=== PATIENT | female | born 1960 | race African-American/Black ===

== ENCOUNTER 2017-05-12 04:55 | Day surgery (SDC) | payer OTHER ==
[2017-05-05 11:58] VITALS: BMI 29.6
[2017-05-12] MEDS ORDERED: LIDOCAINE 1%/EPI 1:100000 (50 ML MULTI DOSE VIAL) ONE (08:37)
[2017-05-12] MEDS ORDERED: MICROFIBRILLAR COLLAGEN 1 GM EACH ONE (08:37)
[2017-05-12] MEDS ORDERED: MIDAZOLAM HCL 2 MG/2 ML SINGLE DOSE VIAL ONE ×2 (08:58)
[2017-05-12] MEDS ORDERED: PROPOFOL 20 ML ONE ×2 (08:58→09:39)
[2017-05-12] MEDS ORDERED: KETAMINE HCL 200 MG/20 ML VIAL ONE (08:59)
--- NOTE | 2017-05-12 09:06 | HP ---
History & Physical Update - History History: No Change - Physical Physical: No Change - Assessment Assessment: No Change - Plan Plan: No Change (No change from H&P present in paper chart. I have informed the patient that I will be assisting Dr. Xavier with today's surgery.)
[2017-05-12] MEDS ORDERED: CLINDAMYCIN PHOSPHATE 600 MG/4 ML VIAL IVPB ONE (09:40)
[2017-05-12] MEDS ORDERED: CLINDAMYCIN PHOSPHATE 600 MG/4 ML VIAL ONE (09:41)
[2017-05-12] MEDS ORDERED: LIDOCAINE 1%/EPI 1:100000 (20 ML MULTI DOSE VIAL) INF ONE (09:56)
[2017-05-12] MEDS ORDERED: MICROFIBRILLAR COLLAGEN 1 GM EACH TP ONE (10:48)
[2017-05-12] MEDS ORDERED: LACTATED RINGERS SOLUTION 1,000 ML IV SCH (11:15)
[2017-05-12] MEDS ORDERED: ALBUTEROL SO4 6.7 GM HFA INHALER IH ONE (11:18)
[2017-05-12] MEDS ORDERED: ONDANSETRON 4 MG/2 ML VIAL IVPUSH PRN (11:30)
[2017-05-12] MEDS ORDERED: oxyCODONE HCL 5 MG TABLET PO PRN (11:30)
[2017-05-12] MEDS: ALBUTEROL SO4 0.083% IH SOL 2.5 MG/3 ML VIAL.NEB. NEB ONE ×2 (11:30→13:40)
--- NOTE | 2017-05-12 13:33 | OP ---
Operative Note - Note: Operative Date: 05/12/17 Pre-Operative Diagnosis: left thyroid nodule Operation: left hemithyroidectomy Post-Operative Diagnosis: Same as Pre-op Surgeon: Trip Xavier Tableman: Kareen Hughes Anesthesiologist/PRIZE COORDINATOR: Anabella Ceja Anesthesia: General Specimens Removed: left thyroid lobe and isthmus Estimated Blood Loss (mls): 10 Fluid Volume Replaced (mls): 1,200 Operative Report Dictated: Yes
--- NOTE | 2017-05-12 13:40 | SURG ---
Surgery Child Psychology Teacher Note Child Psychology Teacher: Kareen Hughes PA-C Date of Service: 05/12/17 Diagnosis: left thyroid nodule Procedure: left hemithyroidectomy I was present for the entirety of the operative procedure. For further detail, please refer to operative report. Visit type - Case Type Case Type: Scheduled Admission - New patient This patient is new to me today: Yes Date on this admission: 05/12/17
[2017-05-12] MEDS ORDERED: ALBUTEROL SO4 0.083% IH SOL 2.5 MG/3 ML VIAL.NEB. NEB ONE (14:37)
[2017-05-12 15:02] VITALS: TEMP 98.1
[2017-05-12] MEDS ORDERED: oxyCODONE HCL 5 MG TABLET ONE (16:18)
[2017-05-12] MEDS ORDERED: oxyCODONE HCL 5 MG TABLET PO ONE (16:20)
[2017-05-12 16:58] VITALS: BP 160/83; PULSE 88
--- NOTE | 2017-05-15 10:14 | OP ---
DATE OF OPERATION: 05/12/2017 SURGICAL ATTENDING: Farzaneh Perez MD CHOIR MEMBER: SARA Price PREOPERATIVE DIAGNOSIS: Left and isthmus thyroid nodules. POSTOPERATIVE DIAGNOSIS: Left and isthmus thyroid nodules. ANESTHESIA: General endotracheal. PROCEDURE: 1. Left hemithyroidectomy. 2. Neck ultrasound. DESCRIPTION OF PROCEDURE: The patient was taken into the operating room, placed in a supine position, endotracheally intubated. Neck ultrasound was performed showing a left thyroid lobe and isthmus nodules. No evidence of extracapsular extension or lymphadenopathy was seen. The right lobe was completely normal. The patient was then prepped and draped in usual sterile fashion. Local anesthesia was administered, and a 4.5-cm incision was made horizontally in an upper neck skin crease. This was carried down through subcutaneous tissues and platysma. Subplatysmal flaps were raised superiorly and inferiorly, and flap hooks were placed for exposure. The median raphe was incised, and the strap muscles on the left side were elevated off the thyroid gland. The recurrent laryngeal nerve and superior laryngeal nerves were identified and preserved. The superior, posterior, and inferior attachments were transected with care taken to preserve the parathyroid glands. The isthmus was transected with a LigaSure. IN this way, the left thyroid lobe was removed. It was inspected for parathyroid tissue, and none was found. It was then sent to Pathology for permanent evaluation. Hemostasis was achieved with electrocautery and Avitene. The wound was then closed in 3 layers. Sterile dressings were placed. The patient was then awakened, extubated, and taken to recovery in stable condition. Dr. Perez, the attending surgeon, was present throughout the entire procedure. FARZANEH PEREZ M.D. [id number]
--- NOTE | 2017-05-15 12:47 | PATH ---
Surgical Pathology Report Patient Name: RUPERT [place] [facility]. Rec. #: [id number] /Age/Gender: 1960 (Age: 57) / F Account: [id number] Location: [facility] SURGICAL Taken: 05/12/2017 Received: 05/12/2017 Reported: 05/15/2017 Physicians: Trip Xavier M.D. Specimen(s) Received LEFT THYROID LOBE AND ISTHMUS Clinical History Thyroid nodules Final Diagnosis THYROID GLAND, LEFT LOBE AND ISTHMUS, HEMITHYROIDECTOMY: BENIGN THYROID TISSUE WITH MULTINODULAR HYPERPLASIA WITH DOMINANT NODULE WITH FOCAL CYSTIC AND DEGENERATIVE CHANGES (2.6 CM); MILD PATCHY LYMPHOCYTIC THYROIDITIS. NO MALIGNANCY IDENTIFIED. Electronically Signed Greg Schaeffer M.D. Gross Description Received in formalin labeled "left thyroid lobe and isthmus" is a 24 g portion of thyroid lobe and an attached isthmus. The left lobe measures 5.0 x 2.9 x 1.4 cm and the isthmus measures 3.5 x 2.8 x 1.5 cm. The outer capsule is intact. The left lobe is inked black and the isthmus is inked blue. Sectioning reveals a large, 2.6 cm in greatest dimension colloid nodule in the isthmus. There is an additional smaller nodule in the inferior pole of the left lobe. The remaining thyroid parenchyma is red-brown and beefy. Public Health Officer sections are submitted in 11 cassettes as follows: 1-7-left lobe sequentially from superior to inferior; 1-78-pjntzfo sequentially from left to right. /05/12/201705/12/2017
== END 2017-05-12 16:58 | disposition home or self-care (01) ==
LOC: JASU-SURG 04:55
PROVIDERS: ATTEND Surgery
PROC: 0GTG0ZZ Resection of Left Thyroid Gland Lobe, Open Approach (ICD-10-PCS; principal; 2017-05-12 09:00)
DX: E04.1 Nontoxic single thyroid nodule (principal)
CPT/HCPCS: 88307-TC; 94760

== ENCOUNTER 2017-06-24 10:09 | Emergency (ER) | payer OTHER ==
[2017-06-24 10:15] VITALS: BP 164/68; PULSE 103; TEMP 98.4; BMI 29.7
[2017-06-24] MEDS ORDERED: ALBUTEROL SO4 2.5/IPRATROPIUM 0.5 INH SOL 3 ML VIAL.NEB. NEB ONE ×4 (10:21→11:09)
[2017-06-24] MEDS ORDERED: predniSONE 20 MG TABLET (UD) PO ONE (10:31)
--- NOTE | 2017-06-24 10:33 | PDOC ---
History of Present Illness - General Chief Complaint: Asthma Stated Complaint: SOB, COUGH (ASTHMA) Time Seen by Provider: 06/24/17 10:21 History Source: Patient Exam Limitations: No Limitations - History of Present Illness Initial Comments: 06/24/17 10:28 57 yr female with history of asthma states she had thyroid removal May 12 and since then has had cough wheezing. Pt has no history of intubations for asthma, pt has been hospitalized. Pt denies fever . 06/24/17 10:33 Timing/Duration: reports: constant Severity: reports: moderate Past History - Past Medical History Allergies/Adverse Reactions: Allergies Allergy/AdvReac Type Severity Reaction Status Date / Time Penicillins Allergy Hives Verified 06/24/17 10:15 Home Medications: Ambulatory Orders Methimazole 10 mg PO BID 06/16/14 Amlodipine Besylate [Norvasc -] 10 mg PO DAILY 01/19/15 Beclomethasone Dipropionate [Qvar] 8.7 gm IH ASDIR 01/19/15 Gabapentin 300 mg PO BID 01/19/15 Iron,Carbonyl/Vit C/Vit B12/FA [Iron 100 Plus Tablet] 1 each PO DAILY 01/19/15 Lansoprazole [Prevacid -] 30 mg PO DAILY 01/19/15 Cyclobenzaprine HCl [Flexeril -] 10 mg PO Q8H PRN #20 tablet 06/29/15 Guaifenesin Dm [Mucinex Dm -] 1 - 2 tab PO Q12H PRN #20 tab.er.12h 10/25/15 Oxycodone HCl/Acetaminophen [Percocet 5-325 mg Tablet] 1 tab PO Q4H PRN #20 tablet MDD 6 05/12/17 Azithromycin [Zithromax 250mg Tablets -] 250 mg PO UTDICT #6 tab 06/24/17 Prednisone [Deltasone -] 40 mg PO DAILY #8 tablet 06/24/17 Anemia: Yes Asthma: Yes Cancer: No Cardiac Disorders: No CVA: No (?SMALL STROKE ON CT SCAN SHOWED YEARS AGO) COPD: No CHF: No Dementia: No Diabetes: No GI Disorders: Yes (GERD) Disorders: No HTN: Yes Hypercholesterolemia: No Liver Disease: No Seizures: No Thyroid Disease: Yes - Psycho/Social/Smoking Cessation Hx Anxiety: No Suicidal Ideation: No Smoking Status: No Smoking History: Never smoked Have you smoked in the past 12 months: No Number of Cigarettes Smoked Daily: 0 Hx Alcohol Use: Yes (SOCIAL) Drug/Substance Use Hx: No Substance Use Type: None *Physical Exam - Vital Signs Last Vital Signs Temp Pulse Resp BP Pulse Ox 98.4 F 103 H 20 164/68 95 06/24/17 10:11 06/24/17 10:11 06/24/17 10:11 06/24/17 10:11 06/24/17 10:11 - Physical Exam General Appearance: Yes: Nourished, Appropriately Dressed HEENT: positive: EOMI, ZELDA, Normal ENT Inspection, TMs Normal, Pharynx Normal Neck: positive: Supple Respiratory/Chest: positive: Rhonchi, Wheezing. negative: Stridor Cardiovascular: positive: Regular Rhythm, Regular Rate Gastrointestinal/Abdominal: positive: Normal Bowel Sounds, Soft Musculoskeletal: positive: Normal Inspection Extremity: positive: Normal Capillary Refill, Normal Inspection, Normal Range of Motion Integumentary: positive: Normal Color, Dry, Warm Neurologic: positive: Fully Oriented, Alert, Normal Mood/Affect, Normal Response , Motor Strength 5/5 ED Treatment Course - Medications Given in the ED: ED Medications Discontinued Medications Generic Name Dose Route Start Last Admin Trade Name Freq PRN Reason Stop Dose Admin Albuterol/Ipratropium 1 amp 06/24/17 10:21 06/24/17 10:26 Duoneb - NEB 06/24/17 10:22 1 amp ONCE ONE Administration Medical Decision Making - Medical Decision Making 06/24/17 11:09 cc: cough wheezing , chest feels tight, using neb at home without relief. speaking full sentences no history of intubations pt had partial thyroid gland removal on May 12, 2017 states ever since then she has had a cough and "tickle in throat" no fever 06/24/17 11:10 will give duonebs x3 prednisone po, chest xray to r/o infiltrate *DC/Admit/Observation/Transfer Diagnosis at time of Disposition: Bronchitis after surgery - Discharge Dispostion Disposition: HOME Condition at time of disposition: Good - Prescriptions Prescriptions: Prednisone [Deltasone -] 40 mg PO DAILY #8 tablet Azithromycin [Zithromax 250mg Tablets -] 250 mg PO UTDICT #6 tab - Patient Instructions Printed Discharge Instructions: DI for Bronchiolitis Additional Instructions: take next dose of prednisone tomorrow use inhaler as directed every 4hrs take the Zpack antibiotic as directed for 5 days drink pleanty of water to stay well hydrated. follow with your doctor on Monday or Monday for follow up
[2017-06-24] MEDS ORDERED: predniSONE 20 MG TABLET (UD) ONE (10:34)
== END 2017-06-24 11:44 | disposition home or self-care (01) ==
LOC: JERFT 10:09
PROC: 3E0F7GC Introduction of Other Therapeutic Substance into Respiratory Tract, Via Natural or Artificial Opening (ICD-10-PCS; principal; 2017-06-24)
PROC: 3E0F7GC Introduction of Other Therapeutic Substance into Respiratory Tract, Via Natural or Artificial Opening (ICD-10-PCS; 2017-06-24)
PROC: 3E0F7GC Introduction of Other Therapeutic Substance into Respiratory Tract, Via Natural or Artificial Opening (ICD-10-PCS; 2017-06-24)
DX: J40 Bronchitis, not specified as acute or chronic (principal); Z98.890 Other specified postprocedural states; J45.909 Unspecified asthma, uncomplicated; I10 Essential (primary) hypertension; K21.9 Gastro-esophageal reflux disease without esophagitis; Z86.73 Personal history of transient ischemic attack (TIA), and cerebral infarction without residual deficits
CPT/HCPCS: 71020-TC; 94640; 99281-25

== ENCOUNTER 2018-01-12 14:10 | Emergency (ER) | payer OTHER ==
[2018-01-12 14:18] VITALS: BP 150/95; PULSE 77; TEMP 97.5; BMI 29.8
[2018-01-12] MEDS ORDERED: ALBUTEROL SO4 2.5/IPRATROPIUM 0.5 INH SOL 3 ML VIAL.NEB. NEB ONE ×2 (15:19→15:41)
[2018-01-12] MEDS ORDERED: predniSONE 20 MG TABLET (UD) PO ONE (15:19)
--- NOTE | 2018-01-12 15:26 | PDOC ---
History of Present Illness - General Chief Complaint: Respiratory Stated Complaint: Sore Throat/COUGH Time Seen by Provider: 01/12/18 14:31 History Source: Patient Exam Limitations: No Limitations - History of Present Illness Initial Comments: 01/12/18 15:55 Pt. is a 57 y/o F who presents to the ED c/o cough, sore throat and shortness of breath for one week. She states that the cough is dry and she finds it difficult to catch her breath. She feels like she is wheezing and states that her chest feels tight. Denies fever, chills, ear ache, n/v/d ,chest pain. Past History - Past Medical History Allergies/Adverse Reactions: Allergies Allergy/AdvReac Type Severity Reaction Status Date / Time Penicillins Allergy Hives Verified 01/12/18 14:17 Home Medications: Ambulatory Orders Iron,Carb/Vit C/Vit B12/Folic [Iron 100 Plus Tablet] 1 each PO DAILY 01/19/15 Albuterol 0.083% Nebulizer Geovanna [Ventolin 0.083% Nebulizer Soln -] 1 neb NEB Q4H #20 vial 01/12/18 Albuterol Sulfate Inhaler - [Ventolin Hfa Inhaler -] 1 - 2 inh PO QID 01/12/18 Azithromycin [Zithromax 250mg Tablets -] 250 mg PO UTDICT #6 tab 01/12/18 Cholecalciferol (Vitamin D3) [Vitamin D3 -] 400 unit PO DAILY 01/12/18 Levothyroxine [Synthroid -] 88 mcg PO DAILY 01/12/18 Lisinopril [Prinivil] 5 mg PO DAILY 01/12/18 predniSONE [Deltasone -] 40 mg PO DAILY #8 tablet 01/12/18 Anemia: Yes Asthma: Yes Cancer: No Cardiac Disorders: No CVA: No (?SMALL STROKE ON CT SCAN SHOWED YEARS AGO) COPD: No CHF: No Dementia: No Diabetes: No GI Disorders: Yes (GERD) Disorders: No HTN: Yes Hypercholesterolemia: No Liver Disease: No Seizures: No Thyroid Disease: Yes Other medical history: baseline sat 94% - Suicide/Smoking/Psychosocial Hx Smoking Status: No Smoking History: Former smoker Have you smoked in the past 12 months: No Number of Cigarettes Smoked Daily: 0 If you are a former smoker, when did you quit?: 4 years Information on smoking cessation initiated: No Hx Alcohol Use: Yes (SOCIAL) Drug/Substance Use Hx: No Substance Use Type: None Review of Systems - Review of Systems Able to Perform ROS?: Yes Is the patient limited Slovenian proficient: No Constitutional: No: Chills, Fever, Weakness HEENTM: Yes: Throat Pain. No: Ear Pain, Nose Pain, Nose Congestion, Throat Swelling, Difficulty Swallowing Respiratory: Yes: Cough, Shortness of Breath. No: Wheezing Cardiac (ROS): Yes: Chest Tightness. No: Chest Pain, Lightheadedness ABD/GI: No: Diarrhea, Nausea, Vomiting Integumentary: No: Erythema, Pruritus, Rash Neurological: No: Headache, Numbness, Weakness All Other Systems: Reviewed and Negative *Physical Exam - Vital Signs Last Vital Signs Temp Pulse Resp BP Pulse Ox 97.5 F L 77 16 150/95 94 L 01/12/18 14:14 01/12/18 14:14 01/12/18 14:14 01/12/18 14:14 01/12/18 14:14 - Physical Exam General Appearance: Yes: Nourished, Appropriately Dressed. No: Apparent Distress (Pt. is AAOx3, sitting on exam bed breathing easily. ) HEENT: positive: EOMI, ZELDA, TMs Normal, Rhinorrhea. negative: Normal Voice, Pharynx Normal, Tonsillar Exudate, Tonsillar Erythema Neck: positive: Trachea midline, Supple. negative: Tender, Rigid, Lymphadenopathy (R), Lymphadenopathy (L) Respiratory/Chest: positive: Normal Breath Sounds, Respiratory Distress, Accessory Muscle Use, Decreased Breath Sounds (to the bases). negative: Rales, Rhonchi, Wheezing Cardiovascular: positive: Regular Rhythm, Regular Rate, S1, S2 (present). negative: Murmur Integumentary: positive: Normal Color, Dry, Warm. negative: Rash Neurologic: positive: Fully Oriented, Alert, Normal Mood/Affect, Normal Response , Motor Strength 5/5 Medical Decision Making - Medical Decision Making 01/12/18 16:03 Pt. is a 57 y/o F who presents to the ED with cough and sore throat for one week. On exam pt lungs CTAB, with decrease aeration to the bases. Duonebs given with relief of symptoms. Pt reports she feels much better at this time. Repeat O2 sat taken 97% on RA. Will treat for bronchitis at this time. Pt to f/u with PCP. Will dc home at this time. Pt understands all dc instructions and all questions were answered *DC/Admit/Observation/Transfer Diagnosis at time of Disposition: Bronchitis - Discharge Dispostion Disposition: HOME Condition at time of disposition: Stable Decision to Admit order: No - Prescriptions Prescriptions: Albuterol 0.083% Nebulizer Geovanna [Ventolin 0.083% Nebulizer Soln -] 1 neb NEB Q4H #20 vial Azithromycin [Zithromax 250mg Tablets -] 250 mg PO UTDICT #6 tab predniSONE [Deltasone -] 40 mg PO DAILY #8 tablet - Referrals Referrals: Alfonzo Ornelas [Primary Care Provider] - - Patient Instructions Printed Discharge Instructions: DI for Acute Bronchitis Additional Instructions: You have bronchitis. Please take the steroids, and antibiotics as prescribed. Drink plenty of fluids. Follow up with your primary care doctor this week. Your strep test was negative today. Drink warm drinks and use halls for your sore throat. Return to the ED if you have worsening shortness of breath, difficulty breathing or have any changes in your symptoms. - Post Discharge Activity
[2018-01-12] MEDS ORDERED: predniSONE 20 MG TABLET (UD) ONE (15:41)
== END 2018-01-12 16:32 | disposition home or self-care (01) ==
LOC: JERFT 14:10
PROC: 3E0F7GC Introduction of Other Therapeutic Substance into Respiratory Tract, Via Natural or Artificial Opening (ICD-10-PCS; principal; 2018-01-12)
DX: J40 Bronchitis, not specified as acute or chronic (principal); Z87.891 Personal history of nicotine dependence; I10 Essential (primary) hypertension; K21.9 Gastro-esophageal reflux disease without esophagitis
CPT/HCPCS: 87070; 87430; 94640; 99281-25; J7620

== ENCOUNTER 2018-07-29 06:29 | Observation (INO) | payer OTHER ==
--- NOTE | 2018-07-29 07:33 | PDOC ---
History of Present Illness - General Chief Complaint: Pain Stated Complaint: ABD PAIN Time Seen by Provider: 07/29/18 07:15 History Source: Patient Exam Limitations: No Limitations - History of Present Illness Travel History: No Initial Comments: 07/29/18 07:24 58y F hx of asthma, gerd, presents with lower abd pain since last night. Pt notes that she had slight pain during the day, but around 5pm, she noticed it worsened. The pain seems to wax and wane initially, but now is persistent, pain is worse in the lower abdomen and radiates to the RLQ. Pt endorses some dysuria and nausea. She denies any fever/chills, bcak pain, chest pain, n/v, vag dc, vag bleeding, diarrhea, melena, bpr, constipation (last BM yesterday). No prior abd surgery. PMD: Dr. Bojorquez Past History - Past Medical History Allergies/Adverse Reactions: Allergies Allergy/AdvReac Type Severity Reaction Status Date / Time Penicillins Allergy Hives Verified 01/12/18 14:17 Home Medications: Ambulatory Orders Iron,Carb/Vit C/Vit B12/Folic [Iron 100 Plus Tablet] 1 each PO DAILY 01/19/15 Albuterol 0.083% Nebulizer Geovanna [Ventolin 0.083% Nebulizer Soln -] 1 neb NEB Q4H #20 vial 01/12/18 Albuterol Sulfate Inhaler - [Ventolin Hfa Inhaler -] 1 - 2 inh PO QID 01/12/18 Azithromycin [Zithromax 250mg Tablets -] 250 mg PO UTDICT #6 tab 01/12/18 Cholecalciferol (Vitamin D3) [Vitamin D3 -] 400 unit PO DAILY 01/12/18 Levothyroxine [Synthroid -] 88 mcg PO DAILY 01/12/18 predniSONE [Deltasone -] 40 mg PO DAILY #8 tablet 01/12/18 Montelukast Sodium [Singulair] 10 mg PO DAILY 07/29/18 Nebivolol HCl [Bystolic] 10 mg PO DAILY 07/29/18 Prevacid - MDD UNKNOWN DOSE 07/29/18 Anemia: Yes Asthma: Yes Cancer: No Cardiac Disorders: No CVA: No (?SMALL STROKE ON CT SCAN SHOWED YEARS AGO) COPD: No CHF: No Dementia: No Diabetes: No GI Disorders: Yes (GERD) Disorders: No HTN: Yes Hypercholesterolemia: No Liver Disease: No Seizures: No Thyroid Disease: Yes - Suicide/Smoking/Psychosocial Hx Smoking Status: No Smoking History: Never smoked Have you smoked in the past 12 months: No Number of Cigarettes Smoked Daily: 0 If you are a former smoker, when did you quit?: 4 years Information on smoking cessation initiated: No Hx Alcohol Use: No Drug/Substance Use Hx: No Substance Use Type: None Review of Systems - Review of Systems Able to Perform ROS?: Yes Comments:: 07/29/18 07:43 Constitutional - no reported Fever, Chills, HEENT: no reported vision changes, sore throat Respiratory: no reported cough, sob, hemoptysis Cardiac: no reported chest pain, palpitations, light headedness, leg swelling Abd/GI: +abd pain, nausea no reported vomiting, blood per rectum, melena, diarrhea : + dysuria, no reported frequency, discharge Musculskelatal - no reported back pain, joint swelling skin - no reported bruising, erythema, rash neurological: no reported headache, numbness, focal weakness, tingling, ataxia, hematologic: no reported easy bruising, easy bleeding *Physical Exam - Vital Signs Last Vital Signs Temp Pulse Resp BP Pulse Ox 98.3 F 73 19 136/85 96 07/29/18 06:46 07/29/18 06:46 07/29/18 06:46 07/29/18 06:46 07/29/18 06:46 - Physical Exam Comments: 07/29/18 07:44 GENERAL: The patient is awake, alert, and fully oriented, Nontoxic - in no acute distress. HEAD: Normocephalic, atraumatic. EYES: extraocular movements intact, sclera anicteric, conjunctiva clear. ENT: Normal voice, Moist mucous membranes. NECK: Normal range of motion, supple LUNGS: Breath sounds equal, clear to auscultation bilaterally. No wheezes, no rhonchi, no rales. HEART: Regular rate and rhythm, normal S1 and S2 without murmur, rub or gallop. ABDOMEN: mild lower abd tenderness R>L, Soft, No guarding, no rebound. No CVA tenderness EXTREMITIES: Normal range of motion, no edema. No clubbing or cyanosis. No cords, erythema, or tenderness. NEUROLOGICAL: No facial assymetry, Normal speech, moving all 4 extremities spontaneously and symmetrically PSYCH: Normal mood, normal affect. SKIN: Warm, Dry, normal turgor, Heart Score/ECG Review - ECG Impressions Comment:: 07/29/18 09:33 Twelve-lead EKG was performed and reviewed by me. There is normal sinus rhythm with a normal rate. Rate of 69 The axis is normal. The intervals are normal. There is normal R wave progression Nonspecific T wave abnormality ED Treatment Course - LABORATORY CBC & Chemistry Diagram: 07/29/18 15:50 07/29/18 15:50 Medical Decision Making - Medical Decision Making 07/29/18 07:45 ddx - uti, kidney stone, appendicitis will start with UA, if neg will obtain blood work 07/29/18 11:45 The patient's UA was negative so we obtain blood work on reassessment the patient did have some suprapubic and right lower quadrant tenderness. We'll obtain a CT to rule out appendicitis the patient's CT shows enlarged appendix possible early appendicitis as the patient does have tenderness over there would consult surgery. 07/29/18 12:34 aly cassidy will see ept 07/29/18 13:[address] cassidy, requests Peripheral Edp Equipment Operator consult for possiblity of the essure device maybe causing her pain. will dw dr. telles for observation for furthyer monitoring of her abdominal pain 07/29/18 14:05 case aly telles agre with observation request dr. abernathy for sonsultation. will notify dr. abernathy. stable fo rmed surg Case discussed in detail with admitting physician including history, physical exam and ancillary studies. Admitting physician has assumed care for the patient, will follow all pending diagnostics and will complete the evaluation and treatment. 07/29/18 17:08 case aly Victoria, will see pt, consult placed in computer 07/29/18 17:09 *DC/Admit/Observation/Transfer Diagnosis at time of Disposition: Abnormal CT of the abdomen Abdominal pain Qualifiers: Abdominal location: right lower quadrant Qualified Code(s): R10.31 - Right lower quadrant pain - Discharge Dispostion Condition at time of disposition: Guarded Decision to Admit order: Yes - Referrals - Patient Instructions - Post Discharge Activity
[2018-07-29 07:49] LABS: URINE APPEARANCE CLEAR; URINE BILIRUBIN NEGATIVE (<2.0 mg/dL); URINE COLOR YELLOW; URINE GLUCOSE (UA) NEGATIVE (NEGATIVE); URINE KETONE NEGATIVE (NEGATIVE); URINE LEUK ESTERASE NEGATIVE (NEGATIVE); URINE NITRITE NEGATIVE (NEGATIVE); URINE PROTEIN NEGATIVE (NEGATIVE); URINE UROBILINOGEN NEGATIVE mg/dL (0.2-1.0)
[2018-07-29 07:51] LABS: HCG,QUALITATIVE URINE Negative
[2018-07-29] MEDS ORDERED: SODIUM CHLORIDE 1,000 ML IV ONE ×3 (08:17→12:08)
[2018-07-29] MEDS ORDERED: morphine CARPU-JECT 2 MG/1 ML DISP.SYRIN IVPUSH ONE ×2 (08:17→11:48)
[2018-07-29] MEDS ORDERED: ONDANSETRON 4 MG/2 ML VIAL IVPB ONE (08:17)
[2018-07-29] MEDS ORDERED: ONDANSETRON 4 MG/2 ML VIAL ONE (08:25)
[2018-07-29] MEDS ORDERED: morphine SULFATE 4 MG/ML VIAL ONE ×2 (08:25→11:56)
[2018-07-29 08:37] LABS: BASO % 0.3 % (0-2.0); EOS % 0.8 % (0-4.5); HEMATOCRIT 41.7 % (32.4-45.2); HEMOGLOBIN 13.9 GM/dL (10.7-15.3); MCH 29.7 pg (25.7-33.7); MCHC 33.4 g/dl (32.0-36.0); MEAN CELL VOLUME 89.1 fl (80-96); MEAN PLT VOLUME 10.6 fl (7.5-11.1); MONO % 8.3 % (3.8-10.2); NEUT % 44.6 % (42.8-82.8); PLATELET COUNT 197 K/MM3 (134-434); RBC 4.68 M/mm3 (3.60-5.2); WHITE BLOOD COUNT 6.3 K/mm3 (4.0-10.0)
[2018-07-29 09:13] LABS: ALBUMIN 3.3 g/dl (3.4-5.0); ALK PHOS 60 U/L (45-117); ANION GAP 7 MMOL/L (8-16); BILIRUBIN,TOTAL 0.4 mg/dL (0.2-1); BLOOD UREA NITROGEN 7 mg/dL (7-18); CALCIUM 9.4 mg/dL (8.5-10.1); CHLORIDE 103 mmol/L (98-107); CO2 30 mmol/L (21-32); CREATININE 0.7 mg/dL (0.55-1.3); GLUCOSE,RANDOM 80 mg/dL (74-106); LIPASE 73 U/L (73-393); POTASSIUM 3.6 mmol/L (3.5-5.1); SGOT/AST 16 U/L (15-37); SGPT/ALT 20 U/L (13-61); SODIUM 140 mmol/L (136-145); TOT PROT 7.5 g/dl (6.4-8.2)
[2018-07-29 12:55] LABS: INR 1.21 (0.83-1.09); PROTHROMBIN TIME (PATIENT) 14.3 SEC (9.7-13.0)
--- NOTE | 2018-07-29 13:38 | CONSULT ---
Consult Consult Specialty:: General Surgery Referred by:: Dr. Baires Reason for Consultation:: lower abdominal pain, borderline enlarged appendix on CT - History of Present Illness Chief Complaint: lower abdominal pain, nausea, anorexia, dysuria History of Present Illness: 58yoF with HTN, asthma, GERD, hypothyroidism, h/o Essure placement 3yrs ago, s/ p shoulder surgery and left hemithyroidectomy, presented with bilateral lower abdominal pain associated with heaviness/pressure (like menstrual cramps used to be) with urination, nausea but no vomiting and anorexia beginning yesterday morning with persistence throughout the day. She discussed with her EMT daughter , and came to ER this morning with worsening pain, mostly suprapubic and lower quadrants, with right a bit more than left. Denies hematuria, diarrhea, constipation though stools tend to be hard with iron supplements, last BM yesterday, which did not change the pain. She only had a few bites for breakfast and lunch yesterday, but is hungry now. She stopped getting menses 2 yrs ago. In ER, she is afebrile, with normal labs including WBC, GI labs, and UA. CT was done, showing only a borderline enlarged appendix at 8mm, without clear inflammatory changes, possibly consistent with early appendicitis, and surgery was asked to evaluate. She had pain medication initially, but has had no antibiotics. She is NPO with IV fluid running. - History Source History Provided By: Patient Limitations to Obtaining History: No Limitations - Past Medical History Cardio/Vascular: Yes: HTN Pulmonary: Yes: Asthma, Bronchitis Gastrointestinal: Yes: GERD Reproductive: Yes: Postmenopausal, Other (s/p Essure 3 yrs ago) ...LMP Comment: 2 years ago ...: No Heme/Onc: Yes: Anemia Endocrine: Yes: Hypothyroidism - Past Surgical History Additional Surgical History: Essure device (transvaginally) 3 yrs ago; right shoulder arthroscopy x 2 (rotator cuff and then scar tissue removal); left hemithyroidectomy with possible partial neck dissection ("it was stuck to something") - Alcohol/Substance Use Hx Alcohol Use: No (quit social+ use 05/12/17) History of Substance Use: reports: Cocaine (in teens only), Marijuana (1-2x weekly, last use Monday) - Smoking History Smoking history: Former smoker Have you smoked in the past 12 months: No If you are a former smoker, when did you quit?: 5 years ago - Social History ADL: Independent Home Medications - Allergies Allergies/Adverse Reactions: Allergies Allergy/AdvReac Type Severity Reaction Status Date / Time Penicillins Allergy Hives Verified 01/12/18 14:17 - Home Medications Home Medications: Ambulatory Orders Iron,Carb/Vit C/Vit B12/Folic [Iron 100 Plus Tablet] 1 each PO DAILY 01/19/15 Albuterol 0.083% Nebulizer Geovanna [Ventolin 0.083% Nebulizer Soln -] 1 neb NEB Q4H #20 vial 01/12/18 Albuterol Sulfate Inhaler - [Ventolin Hfa Inhaler -] 1 - 2 inh PO QID 01/12/18 Azithromycin [Zithromax 250mg Tablets -] 250 mg PO UTDICT #6 tab 01/12/18 Cholecalciferol (Vitamin D3) [Vitamin D3 -] 400 unit PO DAILY 01/12/18 Levothyroxine [Synthroid -] 88 mcg PO DAILY 01/12/18 Lisinopril [Prinivil] 5 mg PO DAILY 01/12/18 predniSONE [Deltasone -] 40 mg PO DAILY #8 tablet 01/12/18 Home Medications (free text): per patient, had Z-aliyah and 5-day steroid taper from last Monday to last Monday for URI; also stated BP med is Bystolic, does not think it's lisinopril; uses Flovent 2 puffs usually daily, occasionally twice daily; uses albuterol nebulizer couple times a week as needed Family Disease History - Family Disease History Family History: Unremarkable (noncontributory) Review of Systems - Review of Systems Constitutional: reports: Chills, Fever ("hot and cold flashes" - more frequent last couple days than usual), Loss of Appetite (yesterday) Eyes: reports: Other (wears glasses). denies: Recent Change in Vision HENT: reports: Nasal Congestion (last week more than usual, tends to have some chronically), Throat Pain (last week, improved since meds) Neck: denies: Pain on Movement, Stiffness Cardiovascular: denies: Chest Pain, Palpitations Respiratory: reports: Cough. denies: SOB Gastrointestinal: reports: Abdominal Pain (with hpi), Nausea (with hpi). denies : Constipation (hard stools but pretty regular), Diarrhea, Melena, Rectal Bleeding, Vomiting Genitourinary: reports: Dysuria ("heaviness" and "pressure" with urination - last couple days). denies: Burning, Hematuria, Vaginal Bleeding Musculoskeletal: denies: Back Pain, Joint Pain, Muscle Pain Integumentary: denies: Change in Color, Rash Neurological: denies: Dizziness, Headache Physical Exam Vital Signs: Vital Signs Temperature 98.4 F 07/29/18 12:21 Pulse Rate 79 07/29/18 12:21 Respiratory Rate 18 07/29/18 12:21 Blood Pressure 139/82 07/29/18 12:21 O2 Sat by Pulse Oximetry (%) 100 07/29/18 12:21 Constitutional: Yes: Well Nourished, No Distress, Calm Eyes: Yes: Conjunctiva Clear, EOM Intact HENT: Yes: Atraumatic, Normocephalic Neck: Yes: Supple, Trachea Midline, Other (healed thyroid scar) Cardiovascular: Yes: Regular Rate and Rhythm. No: Murmur Respiratory: Yes: Regular, CTA Bilaterally. No: Wheezes Gastrointestinal: Yes: Normal Bowel Sounds, Soft, Hernia (tiny palpable umbilical defect), Tenderness (bilateral lower quadrants and suprapubic area, right little more than left, but both sides tender without referred tenderness; no brittney/guard). No: Tenderness, Rebound ...Rectal Exam: Yes: Deferred Renal/: No: CVA Tenderness - Left, CVA Tenderness - Right Musculoskeletal: No: Joint Stiffness, Joint Swelling Extremities: No: Cool, Cyanosis Edema: No Peripheral Pulses WNL: Yes Integumentary: Yes: Body Piercing (nasal). No: Jaundice, Rash Neurological: Yes: Alert, Oriented Psychiatric: Yes: Alert, Oriented Labs: CBC, BMP 07/29/18 08:20 07/29/18 08:20 CMP Sodium 140 mmol/L (136-145) 07/29/18 08:20 Potassium 3.6 mmol/L (3.5-5.1) 07/29/18 08:20 Chloride 103 mmol/L (98-107) 07/29/18 08:20 Carbon Dioxide 30 mmol/L (21-32) 07/29/18 08:20 Anion Gap 7 MMOL/L (8-16) L 07/29/18 08:20 BUN 7 mg/dL (7-18) 07/29/18 08:20 Creatinine 0.7 mg/dL (0.55-1.3) 07/29/18 08:20 Creat Clearance w eGFR > 60 (>60) 07/29/18 08:20 Random Glucose 80 mg/dL (74-106) 07/29/18 08:20 Calcium 9.4 mg/dL (8.5-10.1) 07/29/18 08:20 Total Bilirubin 0.4 mg/dL (0.2-1) 07/29/18 08:20 AST 16 U/L (15-37) 07/29/18 08:20 ALT 20 U/L (13-61) 07/29/18 08:20 Alkaline Phosphatase 60 U/L (45-117) 07/29/18 08:20 Total Protein 7.5 g/dl (6.4-8.2) 07/29/18 08:20 Albumin 3.3 g/dl (3.4-5.0) L 07/29/18 08:20 Lipase 73 U/L (73-393) 07/29/18 08:20 INR, PTT INR 1.21 (0.83-1.09) H 07/29/18 12:20 Urine Test Results Urine Color Yellow 07/29/18 07:40 Urine Appearance Clear 07/29/18 07:40 Urine pH 6.0 (5.0-8.0) 07/29/18 07:40 Ur Specific [place] 1.020 (1.001-1.035) 07/29/18 07:40 Urine Protein Negative (NEGATIVE) 07/29/18 07:40 Urine Glucose (UA) Negative (NEGATIVE) 07/29/18 07:40 Urine Ketones Negative (NEGATIVE) 07/29/18 07:40 Urine Blood Negative (NEGATIVE) 07/29/18 07:40 Urine Nitrite Negative (NEGATIVE) 07/29/18 07:40 Urine Bilirubin Negative (<2.0 mg/dL) 07/29/18 07:40 Ur Leukocyte Esterase Negative (NEGATIVE) 07/29/18 07:40 labs essentially normal - UA normal Imaging - Results Cat Scan: Report Reviewed, Image Reviewed (images personally reviewed: Essure noted in pelvic region bilaterally; no obstruction, free air or fluid; appendix borderline large 8mm but no clear inflammatory changes; no diverticulitis) Problem List - Problems (1) Bilateral lower abdominal pain Code(s): R10.31 - RIGHT LOWER QUADRANT PAIN; R10.32 - LEFT LOWER QUADRANT PAIN (2) Abdominal tenderness, left lower quadrant Code(s): R10.814 - LEFT LOWER QUADRANT ABDOMINAL TENDERNESS (3) Abdominal tenderness, right lower quadrant Code(s): R10.813 - RIGHT LOWER QUADRANT ABDOMINAL TENDERNESS (4) Suprapubic abdominal pain Code(s): R10.2 - PELVIC AND PERINEAL PAIN (5) Nausea alone Code(s): R11.0 - NAUSEA (6) Hypothyroidism Code(s): E03.9 - HYPOTHYROIDISM, UNSPECIFIED (7) Hypertension Code(s): I10 - ESSENTIAL (PRIMARY) HYPERTENSION (8) GERD without esophagitis Code(s): K21.9 - GASTRO-ESOPHAGEAL REFLUX DISEASE WITHOUT ESOPHAGITIS (9) Asthma Code(s): J45.909 - UNSPECIFIED ASTHMA, UNCOMPLICATED (10) Anemia, iron deficiency Code(s): D50.9 - IRON DEFICIENCY ANEMIA, UNSPECIFIED Assessment/Plan Patient with bilateral lower quadrant tenderness and suprapubic, though right little more than left, along with >24 history of symptoms, makes diagnosis of possible appendicitis questionable. She did have antibiotics and steroids just last week - unclear how that may impact current process. Presence of Essure device with her symptoms could mean that her pain and tenderness are related to that, though would defer to NIGHT WAREHOUSE MANAGER evaluation thereof. She has not yet had a pelvic exam. Would have NIGHT WAREHOUSE MANAGER evaluate Observe on medical service for repeat labs later tonight or in am Serial exams - no pain medication, no antibiotics - to follow natural course of process NPO/IV fluids Will follow along Discussed with patient risks, benefits and alternatives of diagnostic laparoscopy with laparoscopic possible open appendectomy, including but not limited to bleeding, infection, injury to adjacent structures, intestinal leak or injury, intraabdominal abscess, incisional hernia, need for further procedures; alternatives may include antibiotics, delayed or no surgery - risks of this include failure of nonoperative therapy, perforation, sepsis, recurrence. Also discussed that even if appendix were removed, if it is not the cause of her symptoms, she will require further workup and treatment to identify the source and address it. She understands and would be agreeable to surgery if it becomes indicated. Thank you for the opportunity to participate in the care of this patient.
--- NOTE | 2018-07-29 14:08 | HP ---
Admitting History and Physical - Admission History of Present Illness: 58y F hx of asthma, gerd, presents with lower abd pain since last night. Pt notes that she had slight pain during the day, but around 5pm, she noticed it worsened. The pain seems to wax and wane initially, but now is persistent, pain is worse in the lower abdomen and radiates to the RLQ. Pt endorses some dysuria and nausea. She denies any fever/chills, bcak pain, chest pain, n/v, vag dc, vag bleeding, diarrhea, melena, bpr, constipation (last BM yesterday). No prior abd surgery. - Past Medical History Cardiovascular: Yes: HTN Pulmonary: Yes: Asthma, Bronchitis Gastrointestinal: Yes: GERD ...LMP Comment: 2 years ago ...: No Heme/Onc: Yes: Anemia Endocrine: Yes: Hypothyroidism - Smoking History Smoking history: Never smoked Have you smoked in the past 12 months: No Aproximately how many cigarettes per day: 0 If you are a former smoker, when did you quit?: 4 years - Alcohol/Substance Use Hx Alcohol Use: No History of Substance Use: reports: Cocaine (in teens only), Marijuana (1-2x weekly, last use Monday) - Social History ADL: Independent Home Medications - Allergies Allergies/Adverse Reactions: Allergies Allergy/AdvReac Type Severity Reaction Status Date / Time Penicillins Allergy Hives Verified 01/12/18 14:17 - Home Medications Home Medications: Ambulatory Orders Iron,Carb/Vit C/Vit B12/Folic [Iron 100 Plus Tablet] 1 each PO DAILY 01/19/15 Albuterol 0.083% Nebulizer Geovanna [Ventolin 0.083% Nebulizer Soln -] 1 neb NEB Q4H #20 vial 01/12/18 Albuterol Sulfate Inhaler - [Ventolin Hfa Inhaler -] 1 - 2 inh PO QID 01/12/18 Azithromycin [Zithromax 250mg Tablets -] 250 mg PO UTDICT #6 tab 01/12/18 Cholecalciferol (Vitamin D3) [Vitamin D3 -] 400 unit PO DAILY 01/12/18 Levothyroxine [Synthroid -] 88 mcg PO DAILY 01/12/18 Lisinopril [Prinivil] 5 mg PO DAILY 01/12/18 predniSONE [Deltasone -] 40 mg PO DAILY #8 tablet 01/12/18 Physical Examination Vital Signs: Vital Signs Temperature 98.4 F 07/29/18 12:21 Pulse Rate 79 07/29/18 12:21 Respiratory Rate 18 07/29/18 12:21 Blood Pressure 139/82 07/29/18 12:21 O2 Sat by Pulse Oximetry (%) 100 07/29/18 12:21 Labs: CBC, BMP 07/29/18 08:20 07/29/18 08:20
[2018-07-29 16:01] LABS: BASO % 0.8 % (0-2.0); EOS % 0.9 % (0-4.5); HEMATOCRIT 37.4 % (32.4-45.2); HEMOGLOBIN 12.4 GM/dL (10.7-15.3); LYMPH % 46.9 % (8-40); MCH 29.5 pg (25.7-33.7); MCHC 33.1 g/dl (32.0-36.0); MEAN CELL VOLUME 89.2 fl (80-96); MEAN PLT VOLUME 10.4 fl (7.5-11.1); NEUT % 43.4 % (42.8-82.8); PLATELET COUNT 193 K/MM3 (134-434); RBC 4.19 M/mm3 (3.60-5.2); RDW 13.5 % (11.6-15.6); WHITE BLOOD COUNT 5.6 K/mm3 (4.0-10.0)
[2018-07-29] MEDS ORDERED: ALBUTEROL SO4 2.5/IPRATROPIUM 0.5 INH SOL 3 ML VIAL.NEB. NEB ONE (16:04)
[2018-07-29] MEDS: ALBUTEROL SO4 2.5/IPRATROPIUM 0.5 INH SOL 3 ML VIAL.NEB. NEB SCH ×2 (16:08→20:10)
[2018-07-29 16:15] LABS: ALBUMIN 3.2 g/dl (3.4-5.0); ALK PHOS 56 U/L (45-117); ANION GAP 7 MMOL/L (8-16); BILIRUBIN,TOTAL 0.4 mg/dL (0.2-1); BLOOD UREA NITROGEN 6 mg/dL (7-18); CALCIUM 8.3 mg/dL (8.5-10.1); CHLORIDE 105 mmol/L (98-107); CO2 31 mmol/L (21-32); CREATININE 0.7 mg/dL (0.55-1.3); GLUCOSE,RANDOM 79 mg/dL (74-106); LIPASE 58 U/L (73-393); POTASSIUM 3.5 mmol/L (3.5-5.1); SGOT/AST 16 U/L (15-37); SGPT/ALT 18 U/L (13-61); SODIUM 142 mmol/L (136-145)
[2018-07-30] MEDS: ACETAMINOPHEN 1000 MG/100 ML VIAL (NON FORMULARY) IVPB PRN ×2 (04:55→11:00)
--- NOTE | 2018-07-30 06:12 | EKG ---
Test Reason : Blood Pressure : / mmHG Vent. Rate : 069 BPM Atrial Rate : 069 BPM P-R Int : 142 ms QRS Dur : 080 ms QT Int : 398 ms P-R-T Axes : 048 026 -29 degrees QTc Int : 426 ms NORMAL SINUS RHYTHM NONSPECIFIC T WAVE ABNORMALITY ABNORMAL ECG WHEN COMPARED WITH ECG OF 19-JAN-2015 09:41, NONSPECIFIC T WAVE ABNORMALITY HAS REPLACED INVERTED T WAVES IN LATERAL LEADS Confirmed by TRI BUTT, LOLA ([id number]) on 07/30/2018 6:12:30 AM Referred By: Confirmed By:LOLA BARTLETT MD
[2018-07-30 06:18] LABS: URINE APPEARANCE CLEAR; URINE BILIRUBIN NEGATIVE (<2.0 mg/dL); URINE COLOR STRAW; URINE GLUCOSE (UA) NEGATIVE (NEGATIVE); URINE KETONE 1+ (NEGATIVE); URINE LEUK ESTERASE NEGATIVE (NEGATIVE); URINE NITRITE NEGATIVE (NEGATIVE); URINE PROTEIN NEGATIVE (NEGATIVE); URINE UROBILINOGEN NEGATIVE mg/dL (0.2-1.0)
[2018-07-30 06:27] VITALS: BMI 28.4
[2018-07-30] MEDS ORDERED: LEVOTHYROXINE NA 88 MCG TABLET (FP) PO SCH (07:00)
[2018-07-30] MEDS: ALBUTEROL SO4 2.5/IPRATROPIUM 0.5 INH SOL 3 ML VIAL.NEB. NEB SCH ×2 (07:25→11:24)
[2018-07-30 07:49] LABS: BASO % 0.4 % (0-2.0); EOS % 0.6 % (0-4.5); HEMATOCRIT 41.2 % (32.4-45.2); HEMOGLOBIN 13.4 GM/dL (10.7-15.3); LYMPH % 26.3 % (8-40); MCHC 32.5 g/dl (32.0-36.0); MEAN CELL VOLUME 89.1 fl (80-96); MEAN PLT VOLUME 10.6 fl (7.5-11.1); MONO % 5.8 % (3.8-10.2); NEUT % 66.9 % (42.8-82.8); PLATELET COUNT 197 K/MM3 (134-434); RBC 4.62 M/mm3 (3.60-5.2); RDW 13.6 % (11.6-15.6); WHITE BLOOD COUNT 5.8 K/mm3 (4.0-10.0)
[2018-07-30 08:26] LABS: ANION GAP 11 MMOL/L (8-16); BLOOD UREA NITROGEN 6 mg/dL (7-18); CHLORIDE 102 mmol/L (98-107); CO2 28 mmol/L (21-32); CREATININE 0.7 mg/dL (0.55-1.3); GLUCOSE,RANDOM 82 mg/dL (74-106); SODIUM 141 mmol/L (136-145)
--- NOTE | 2018-07-30 09:58 | CONSULT ---
Consult Consult Specialty:: BOG CUTTER Reason for Consultation:: RLQ pain, h/o Essure - History of Present Illness Chief Complaint: RLQ pain - History Source History Provided By: Patient (58yo here with 2 days of RLQ pain, occ LLQ pain. H/O Essure device inserted she believes at least 4 years ago. Has private outside OBGYN whom she sees regularly. Reported some AUB 7 months ago- had HSG done with MD. Was treated with Abx and no further bleeding ensued. States perimenopausal, last period one year ago. Currently with hot flashes. No VB/abnl discharge. Not sexually active. States pain is not associated with N/V/ Diarrhea/constipation.) - Past Medical History Cardio/Vascular: Yes: HTN Pulmonary: Yes: Asthma, Bronchitis Gastrointestinal: Yes: GERD ...LMP Comment: 2 years ago ...: No Endocrine: Yes: Hypothyroidism - Past Surgical History Additional Surgical History: Essure device (transvaginally) 3 yrs ago; right shoulder arthroscopy x 2 (rotator cuff and then scar tissue removal); left hemithyroidectomy with possible partial neck dissection ("it was stuck to something") - Alcohol/Substance Use Hx Alcohol Use: No History of Substance Use: reports: Cocaine (in teens only), Marijuana (1-2x weekly, last use Monday) - Smoking History Smoking history: Never smoked Have you smoked in the past 12 months: No Aproximately how many cigarettes per day: 0 If you are a former smoker, when did you quit?: 4 years - Social History ADL: Independent Home Medications - Allergies Allergies/Adverse Reactions: Allergies Allergy/AdvReac Type Severity Reaction Status Date / Time Penicillins Allergy Hives Verified 01/12/18 14:17 - Home Medications Home Medications: Ambulatory Orders Iron,Carb/Vit C/Vit B12/Folic [Iron 100 Plus Tablet] 1 each PO DAILY 01/19/15 Albuterol 0.083% Nebulizer Geovanna [Ventolin 0.083% Nebulizer Soln -] 1 neb NEB Q4H #20 vial 01/12/18 Albuterol Sulfate Inhaler - [Ventolin Hfa Inhaler -] 1 - 2 inh PO QID 01/12/18 Azithromycin [Zithromax 250mg Tablets -] 250 mg PO UTDICT #6 tab 01/12/18 Cholecalciferol (Vitamin D3) [Vitamin D3 -] 400 unit PO DAILY 01/12/18 Levothyroxine [Synthroid -] 88 mcg PO DAILY 01/12/18 predniSONE [Deltasone -] 40 mg PO DAILY #8 tablet 01/12/18 Montelukast Sodium [Singulair] 10 mg PO DAILY 07/29/18 Nebivolol HCl [Bystolic] 10 mg PO DAILY 07/29/18 Prevacid - MDD UNKNOWN DOSE 07/29/18 Physical Exam Vital Signs: Vital Signs Temperature 97.6 F 07/30/18 06:00 Pulse Rate 69 07/30/18 06:00 Respiratory Rate 18 07/30/18 06:00 Blood Pressure 143/70 07/30/18 06:00 O2 Sat by Pulse Oximetry (%) 98 07/30/18 02:00 Constitutional: Yes: Well Nourished ...Rectal Exam: Yes: Deferred (NEFG, pink vagina, no CMT, anterior mobile uterus. No adnexal tenderness or masses appreciated bilaterally.) Labs: CBC, BMP 07/30/18 06:45 07/30/18 06:45 Assessment/Plan 58yo with RLQ pain, h/o Essure placement Labs and imaging reviewed, no fire sprinkler fitter pathology on CT scan. Discussed likelihood of perforation with Essure device is 2% in the literature. Highest rate of perforation would be at time of insertion (in her case, 4 years ago) and the initial 3 months after insertion. She has had an HSG 7 months ago per her report that was noted to be normal with tubal occlusion. Likelihood of her RLQ pain being a result of a perforated or migrated device would therefore be low. Imaging showed no hydrosalpinx or inflammation of the adnexa which would be expected if there was an issue. Definitive diagnosis can only be made with laparoscopy and her symptoms do not warrant this at this time. Patient has close relationship with her private outside BOG CUTTER and should follow up with them upon discharge. Natividad Victoria MD
[2018-07-30] MEDS ORDERED: NEBIVOLOL 10 MG TABLET (FP) PO SCH (13:00)
[2018-07-30] MEDS ORDERED: MONTELUKAST NA 10 MG TABLET PO SCH (13:00)
--- NOTE | 2018-07-30 13:06 | PN ---
Progress Note, Physician History of Present Illness: Pt with bilateral lower abdominal pain and 8mm appendix on CT. Labs have remained normal with no elevation in wbc, no fevers. She has had some IV Tylenol for pain, last at 0830. She is seen and examined in her room after walking back from [facility] with daughter. She c/o pain now mainly "in the middle," and reports 9/10, but is clearly more comfortable than yesterday. She had a hard BM this morning as well. She is hungry. WIRED SWEATBAND CUTTER saw pt and did not feel the Essure was likely cause of symptoms at this time, and that laparoscopy would not be indicated at this time either. - Current Medication List Current Medications: Active Medications Acetaminophen (Tylenol -) 650 mg PO Q6H PRN PRN Reason: PAIN LEVEL 1-5 Albuterol/Ipratropium (Duoneb -) 1 amp NEB RQID [facility] Last Admin: 07/30/18 11:24 Dose: 1 amp Ibuprofen (Motrin -) 600 mg PO Q6H PRN PRN Reason: PAIN LEVEL 6-10 Levothyroxine Sodium (Synthroid -) 88 mcg PO DAILY@0700 [facility] Last Admin: 07/30/18 06:14 Dose: 88 mcg Montelukast Sodium (Singulair -) 10 mg PO DAILY [facility] Nebivolol (Bystolic -) 10 mg PO DAILY [facility] - Objective Vital Signs: Vital Signs Temperature 97.2 F L 07/30/18 10:00 Pulse Rate 74 07/30/18 10:00 Respiratory Rate 18 07/30/18 10:00 Blood Pressure 141/70 07/30/18 10:00 O2 Sat by Pulse Oximetry (%) 95 07/30/18 10:00 Vital Signs Period Temp Pulse Resp BP Sys/Gauthier Pulse Ox Last 24 Hr 97.2 F-98.1 F 69-82 18-18 126-147/68-82 92-98 Constitutional: Yes: Well Nourished, No Distress, Calm Eyes: Yes: Conjunctiva Clear, EOM Intact HENT: Yes: Atraumatic, Normocephalic Gastrointestinal: Yes: Normal Bowel Sounds, Soft, Tenderness (minimal to no tenderness in bilateral lower quadrants/suprapubic area - no guarding, no rebound, much improved over yesterday). No: Distention, Tenderness, Epigastrium ...Rectal Exam: Yes: Deferred Genitourinary: No: CVA Tenderness - Left, CVA Tenderness - Right Musculoskeletal: No: Joint Stiffness, Joint Swelling Extremities: No: Cool, Cyanosis Integumentary: Yes: Tattoos. No: Jaundice, Rash Neurological: Yes: Alert, Oriented. No: Unsteady Gait Labs: CBC, BMP 07/30/18 06:45 07/30/18 06:45 Problem List - Problems (1) Bilateral lower abdominal pain Code(s): R10.31 - RIGHT LOWER QUADRANT PAIN; R10.32 - LEFT LOWER QUADRANT PAIN (2) Abdominal tenderness, left lower quadrant Code(s): R10.814 - LEFT LOWER QUADRANT ABDOMINAL TENDERNESS (3) Abdominal tenderness, right lower quadrant Code(s): R10.813 - RIGHT LOWER QUADRANT ABDOMINAL TENDERNESS (4) Suprapubic abdominal pain Code(s): R10.2 - PELVIC AND PERINEAL PAIN (5) Nausea alone Code(s): R11.0 - NAUSEA (6) Hypothyroidism Code(s): E03.9 - HYPOTHYROIDISM, UNSPECIFIED (7) Hypertension Code(s): I10 - ESSENTIAL (PRIMARY) HYPERTENSION (8) GERD without esophagitis Code(s): K21.9 - GASTRO-ESOPHAGEAL REFLUX DISEASE WITHOUT ESOPHAGITIS (9) Asthma Code(s): J45.909 - UNSPECIFIED ASTHMA, UNCOMPLICATED (10) Anemia, iron deficiency Code(s): D50.9 - IRON DEFICIENCY ANEMIA, UNSPECIFIED Assessment/Plan Appendicitis is highly unlikely, given improvement in clinical exam, stable/ normal labs and time elapsed. Per WIRED SWEATBAND CUTTER, Essure unlikely to be cause of symptoms either. Pt did have hard BM this morning and is hungry. Will give diet and po Tylenol/ibuprofen prn - if tolerates without increase in pain or N/V, ok to d/c home Pt to f/u with PMD Dr. Bojorquez and WIRED SWEATBAND CUTTER Dr. Rollins ____ Daughter states she will make sure appointments are made for followup. No surgical intervention indicated at this time. Thank you for the opportunity to participate in the care of this patient.
[2018-07-30] MEDS ORDERED: IBUPROFEN 600 MG TABLET (FP) PO PRN (14:00)
[2018-07-30] MEDS ORDERED: ACETAMINOPHEN 325 MG TABLET (FP) PO PRN (14:00)
--- NOTE | 2018-07-30 15:27 | DS ---
Physical Examination Vital Signs: Vital Signs Temperature 97.2 F L 07/30/18 10:00 Pulse Rate 74 07/30/18 10:00 Respiratory Rate 18 07/30/18 10:00 Blood Pressure 141/70 07/30/18 10:00 O2 Sat by Pulse Oximetry (%) 95 07/30/18 10:00 Findings/Remarks: 58y F hx of asthma, gerd, presents with lower abd pain since last night. Pt notes that she had slight pain during the day, but around 5pm, she noticed it worsened. The pain seems to wax and wane initially, but now is persistent, pain is worse in the lower abdomen and radiates to the RLQ. Pt endorses some dysuria and nausea. She denies any fever/chills, bcak pain, chest pain, n/v, vag dc, vag bleeding, diarrhea, melena, bpr, constipation (last BM yesterday). Patient was admitted overnight and re assessed by surgery this afternoon -- clinically improved and hungry. She was started on regular diet which was well tolerated / she has remained afebrile / nl WBC / and evaluation by GAME DEVELOPER also negative. Patient to be discharged home and follow up at office this week. Constitutional: Yes: Well Nourished, No Distress Eyes: Yes: Conjunctiva Clear, EOM Intact HENT: Yes: Atraumatic, Normocephalic Neck: Yes: WNL Cardiovascular: Yes: Regular Rate and Rhythm Respiratory: Yes: Regular Gastrointestinal: Yes: Normal Bowel Sounds, Soft ...Rectal Exam: Yes: Deferred Renal/: Yes: WNL Breast(s): Yes: WNL Musculoskeletal: Yes: WNL Extremities: Yes: WNL Edema: No Peripheral Pulses WNL: Yes Integumentary: Yes: WNL Neurological: Yes: Alert, Oriented ...Motor Strength: WNL Psychiatric: Yes: Alert, Oriented Labs: CBC, BMP 07/30/18 06:45 07/30/18 06:45 Discharge Summary Reason For Visit: RT LOWER QUADRANT ABD PAIN Current Active Problems Abdominal pain (Acute) Abdominal tenderness, left lower quadrant (Acute) Abdominal tenderness, right lower quadrant (Acute) Abnormal CT of the abdomen (Acute) Anemia, iron deficiency (Acute) Asthma (Acute) Bilateral lower abdominal pain (Acute) GERD without esophagitis (Acute) Hypertension (Acute) Hypothyroidism (Acute) Nausea alone (Acute) Suprapubic abdominal pain (Acute) Suprapubic tenderness (Acute) Condition: Improved - Instructions Referrals: Alfonzo Ornelas [Primary Care Provider] - Disposition: HOME - Home Medications Comprehensive Discharge Medication List: Ambulatory Orders Iron,Carb/Vit C/Vit B12/Folic [Iron 100 Plus Tablet] 1 each PO DAILY 01/19/15 Albuterol 0.083% Nebulizer Geovanna [Ventolin 0.083% Nebulizer Soln -] 1 neb NEB Q4H #20 vial 01/12/18 Albuterol Sulfate Inhaler - [Ventolin Hfa Inhaler -] 1 - 2 inh PO QID 01/12/18 Cholecalciferol (Vitamin D3) [Vitamin D3 -] 400 unit PO DAILY 01/12/18 Levothyroxine [Synthroid -] 88 mcg PO DAILY 01/12/18 Montelukast Sodium [Singulair] 10 mg PO DAILY 07/29/18 Nebivolol HCl [Bystolic] 10 mg PO DAILY 07/29/18 Prevacid - MDD UNKNOWN DOSE 07/29/18
[2018-07-30 15:31] VITALS: BP 144/94; PULSE 95; TEMP 98.3
== END 2018-07-30 15:59 | disposition home or self-care (01) ==
LOC: JER 06:29 → JERBED 14:07 → J5S 23:18
PROVIDERS: ADMIT Family Medicine; ATTEND Family Medicine
PROC: 3E033NZ Introduction of Analgesics, Hypnotics, Sedatives into Peripheral Vein, Percutaneous Approach (ICD-10-PCS; principal; 2018-07-29)
PROC: 3E033GC Introduction of Other Therapeutic Substance into Peripheral Vein, Percutaneous Approach (ICD-10-PCS; 2018-07-29)
PROC: 3E0337Z Introduction of Electrolytic and Water Balance Substance into Peripheral Vein, Percutaneous Approach (ICD-10-PCS; 2018-07-29)
PROC: 3E0F7GC Introduction of Other Therapeutic Substance into Respiratory Tract, Via Natural or Artificial Opening (ICD-10-PCS; 2018-07-29)
DX: R10.31 Right lower quadrant pain (principal); R10.32 Left lower quadrant pain; R10.813 Right lower quadrant abdominal tenderness; R10.2 Pelvic and perineal pain; R11.0 Nausea; I10 Essential (primary) hypertension; D50.9 Iron deficiency anemia, unspecified; K21.9 Gastro-esophageal reflux disease without esophagitis; E03.9 Hypothyroidism, unspecified; J45.909 Unspecified asthma, uncomplicated; Z88.0 Allergy status to penicillin
CPT/HCPCS: 36415; 74177-TC; 80048; 80053; 81003; 83690; 84703; 85025; 85610; 86850; 86900; 86901; 93005; 93010; 94640; 96361; 96374; 96375; 96376; 99285-25; G0378; J0131; J7030; J7620

== ENCOUNTER 2018-11-29 11:17 | Emergency (ER) | payer OTHER ==
[2018-11-29 11:40] VITALS: BP 151/84; PULSE 82; TEMP 98; BMI 28.4
[2018-11-29] MEDS ORDERED: KETOROLAC TROMETHAMINE 60 MG/2 ML VIAL IM ONE (11:55)
[2018-11-29] MEDS ORDERED: KETOROLAC TROMETHAMINE 60 MG/2 ML VIAL ONE (11:56)
--- NOTE | 2018-11-29 12:01 | PDOC ---
*Physical Exam - Vital Signs Last Vital Signs Temp Pulse Resp BP Pulse Ox 98 F 82 18 151/84 98 11/29/18 11:39 11/29/18 11:39 11/29/18 11:39 11/29/18 11:39 11/29/18 11:39 Medical Decision Making - Medical Decision Making 11/29/18 12:00 Pt seen by Midlevel Provider under my direct supervision Ancillary studies reviewed I agree with plan as outlined by Midlevel Provider *DC/Admit/Observation/Transfer Diagnosis at time of Disposition: Neck pain - Discharge Dispostion Disposition: HOME Condition at time of disposition: Improved - Prescriptions Prescriptions: Oxycodone HCl/Acetaminophen [Percocet 5-325 mg Tablet] 1 - 2 tab PO Q6H PRN #10 tab MDD 4 PRN Reason: Pain - Referrals Referrals: Alfonzo Ornelas [Primary Care Provider] - - Patient Instructions Printed Discharge Instructions: DI for Neck Pain Additional Instructions: Take medication as prescribed for severe pain otherwise take Motrin 600 auric strength Tylenol for breakthrough pain. May apply heating pad to the affected area for the next few days or ice if not relieved by heating pad. Follow-up. May take [id number] Nasonex nasal congestion. - Post Discharge Activity
--- NOTE | 2018-11-29 13:22 | PDOC ---
History of Present Illness - General Chief Complaint: Pain, Acute Stated Complaint: NECK PAIN Time Seen by Provider: 11/29/18 11:45 History Source: Patient Exam Limitations: No Limitations - History of Present Illness Initial Comments: 11/29/18 13:55 58-year-old female presents to ED with complaints of neck pain and bilateral knee pain since yesterday unrelieved with Tylenol 650 this morning. Patient also complained of nasal congestion for the past 2 days without difficulty breathing and takes Singulair for her allergies and asthma Timing/Duration: other Severity: mild Associated Symptoms: reports: other Past History - Travel Traveled outside of the country in the last 30 days: No - Past Medical History Allergies/Adverse Reactions: Allergies Allergy/AdvReac Type Severity Reaction Status Date / Time Penicillins Allergy Hives Verified 11/29/18 11:38 Home Medications: Ambulatory Orders Iron,Carb/Vit C/Vit B12/Folic [Iron 100 Plus Tablet] 1 each PO DAILY 01/19/15 Albuterol 0.083% Nebulizer Geovanna [Ventolin 0.083% Nebulizer Soln -] 1 neb NEB Q4H #20 vial 01/12/18 Albuterol Sulfate Inhaler - [Ventolin HFA Inhaler -] 1 - 2 inh PO QID 01/12/18 Cholecalciferol (Vitamin D3) [Vitamin D -] 400 unit PO DAILY 01/12/18 Levothyroxine [Synthroid -] 88 mcg PO DAILY 01/12/18 Montelukast Sodium [Singulair] 10 mg PO DAILY 07/29/18 Nebivolol HCl [Bystolic] 10 mg PO DAILY 07/29/18 Acetaminophen [Tylenol .Regular Strength -] 650 mg PO Q6H PRN tablet 07/30/18 Albuterol 2.5/Ipratropium 0.5 [Duoneb -] 1 amp NEB RQID amp 07/30/18 Ibuprofen [Motrin -] 600 mg PO Q6H PRN tablet 07/30/18 Lansoprazole [Prevacid -] 30 mg PO DAILY 11/29/18 Oxycodone HCl/Acetaminophen [Percocet 5-325 mg Tablet] 1 - 2 tab PO Q6H PRN #10 tab MDD 4 11/29/18 Anemia: Yes Asthma: Yes Cancer: No Cardiac Disorders: No CVA: No (?SMALL STROKE ON CT SCAN SHOWED YEARS AGO) COPD: No CHF: No DVT: No Dementia: No Diabetes: No GI Disorders: Yes (GERD) Disorders: No HTN: Yes Hypercholesterolemia: No Liver Disease: No Seizures: No Thyroid Disease: Yes - Surgical History Abdominal Surgery: No Appendectomy: No Cardiac Surgery: No Cholecystectomy: No Lung Surgery: No Neurologic Surgery: No Orthopedic Surgery: No - Immunization History Immunization Up to Date: Yes - Suicide/Smoking/Psychosocial Hx Smoking Status: No Smoking History: Unknown if ever smoked Have you smoked in the past 12 months: No Number of Cigarettes Smoked Daily: 0 If you are a former smoker, when did you quit?: 4 years Hx Alcohol Use: No Drug/Substance Use Hx: No Substance Use Type: None Hx Substance Use Treatment: No Patient Lives Alone: No Lives with/in: spouse/SO Review of Systems - Review of Systems Able to Perform ROS?: No Constitutional: No: Symptoms Reported HEENTM: Yes: Nose Congestion Respiratory: No: Symptoms reported Cardiac (ROS): No: Symptoms Reported ABD/GI: No: Symptoms Reported : No: Symptoms Reported Musculoskeletal: Yes: Joint Pain, Neck Pain Neurological: No: Symptoms reported Endocrine: No: Symptoms Reported *Physical Exam - Vital Signs Last Vital Signs Temp Pulse Resp BP Pulse Ox 98 F 82 18 151/84 98 11/29/18 11:39 11/29/18 11:39 11/29/18 11:39 11/29/18 11:39 11/29/18 11:39 - Physical Exam General Appearance: Yes: Nourished, Appropriately Dressed. No: Apparent Distress HEENT: positive: EOMI, ZELDA, TMs Normal, Pharynx Normal. negative: Pale Conjunctivae, Nasal Congestion (pink turbinates and nonedematous), Rhinorrhea Neck: positive: Supple, Tender midline (C7- t 2). negative: Decreased range of motion Respiratory/Chest: positive: Lungs Clear, Normal Breath Sounds. negative: Chest Tender, Respiratory Distress, Accessory Muscle Use Cardiovascular: positive: Regular Rhythm, Regular Rate. negative: Murmur Gastrointestinal/Abdominal: positive: Soft. negative: Tenderness Extremity: positive: Normal Capillary Refill, Normal Inspection, Normal Range of Motion. negative: Tender Integumentary: positive: Normal Color, Warm, Moist Moderate Sedation - Procedure Monitoring Vital Signs: Procedure Monitoring Vital Signs Temperature 98 F 11/29/18 11:39 Pulse Rate 82 11/29/18 11:39 Respiratory Rate 18 11/29/18 11:39 Blood Pressure 151/84 11/29/18 11:39 O2 Sat by Pulse Oximetry (%) 98 11/29/18 11:39 ED Treatment Course - RADIOLOGY Radiology Studies Ordered: Category Date Time Status SPINE-CERVICAL [RAD] Stat Radiology 11/29/18 11:55 Taken SPINE-THORACIC [RAD] Stat Radiology 11/29/18 11:55 Taken - Medications Given in the ED: ED Medications Discontinued Medications Generic Name Dose Route Start Last Admin Trade Name Freq PRN Reason Stop Dose Admin Ketorolac Tromethamine 60 mg 11/29/18 11:55 11/29/18 12:06 Toradol Injection - IM 11/29/18 11:56 60 mg ONCE ONE Administration Medical Decision Making - Medical Decision Making 11/29/18 13:34 Chief complaint: Nasal congestion neck pain and bilateral knee pain for the past few days Exam: Noted nasal congestion without other acute findings during my ENT exam. Patient with C7 to T2 tenderness. No tenderness or acute findings to bilateral patella Plan: Cervical and thoracic x-ray ordered along with Toradol IM 11/29/18 14:06 X-ray negative for acute findings. Patient will be discharged home with recommendations to follow-up with her PCP and a few tablets of Percocet. Patient states feeling much better after receiving Toradol. *DC/Admit/Observation/Transfer Diagnosis at time of Disposition: Neck pain - Discharge Dispostion Disposition: HOME Condition at time of disposition: Improved - Prescriptions Prescriptions: Oxycodone HCl/Acetaminophen [Percocet 5-325 mg Tablet] 1 - 2 tab PO Q6H PRN #10 tab MDD 4 PRN Reason: Pain - Referrals Referrals: Alfonzo Ornelas [Primary Care Provider] - - Patient Instructions Printed Discharge Instructions: DI for Neck Pain Additional Instructions: Take medication as prescribed for severe pain otherwise take Motrin 600 auric strength Tylenol for breakthrough pain. May apply heating pad to the affected area for the next few days or ice if not relieved by heating pad. Follow-up. Dr. Velasco take [id number] Nasonex nasal congestion. - Post Discharge Activity
== END 2018-11-29 13:26 | disposition home or self-care (01) ==
LOC: JER 11:17
PROC: 3E0233Z Introduction of Anti-inflammatory into Muscle, Percutaneous Approach (ICD-10-PCS; principal; 2018-11-29)
DX: M54.2 Cervicalgia (principal); I10 Essential (primary) hypertension; E07.9 Disorder of thyroid, unspecified; K21.9 Gastro-esophageal reflux disease without esophagitis
CPT/HCPCS: 72050-TC-FY; 72070-TC-FY; 99282-25

== ENCOUNTER 2018-12-25 11:36 | Emergency (ER) | payer OTHER ==
[2018-12-25 11:59] VITALS: BP 127/77; PULSE 73; TEMP 98.7; BMI 28.4
[2018-12-25] MEDS ORDERED: ACETAMINOPHEN 325 MG TABLET (FP) PO ONE (12:32)
[2018-12-25] MEDS ORDERED: ALBUTEROL SO4 2.5/IPRATROPIUM 0.5 INH SOL 3 ML VIAL.NEB. NEB ONE ×2 (12:32→12:40)
[2018-12-25] MEDS ORDERED: ONDANSETRON *ODT* 4 MG TABLET SL ONE (12:32)
[2018-12-25] MEDS ORDERED: ACETAMINOPHEN 325 MG TABLET (FP) ONE (12:40)
[2018-12-25] MEDS ORDERED: ONDANSETRON *ODT* 4 MG TABLET ONE (12:41)
--- NOTE | 2018-12-25 12:41 | PDOC ---
History of Present Illness - General Chief Complaint: Shortness of Breath Stated Complaint: DIFFICULTY BREATHING History Source: Patient Exam Limitations: No Limitations - History of Present Illness Initial Comments: 12/25/18 12:37 58-year-old female history of hypertension here today complaining of a cough myalgias subjective fevers chills and runny nose sore throat. Patient states she does have a sick contact of a son or daughter with similar symptoms has had intermittent nausea and vomiting starting yesterday and loose watery stools no recent travel Past History - Past Medical History Allergies/Adverse Reactions: Allergies Allergy/AdvReac Type Severity Reaction Status Date / Time Penicillins Allergy Hives Verified 12/25/18 11:57 Home Medications: Ambulatory Orders RX: Iron,Carb/Vit C/Vit B12/Folic [Iron 100 Plus Tablet] 1 each PO DAILY RX: Albuterol 0.083% Nebulizer Geovanna [Ventolin 0.083% Nebulizer Soln -] 1 neb NEB Q4H #20 vial 01/12/18 RX: Albuterol Sulfate Inhaler - [Ventolin HFA Inhaler -] 1 - 2 inh PO QID RX: Cholecalciferol (Vitamin D3) [Vitamin D -] 400 unit PO DAILY 01/12/18 RX: Levothyroxine [Synthroid -] 88 mcg PO DAILY 01/12/18 RX: Montelukast Sodium [Singulair] 10 mg PO DAILY 07/29/18 RX: Nebivolol HCl [Bystolic] 10 mg PO DAILY 07/29/18 RX: Acetaminophen [Tylenol .Regular Strength -] 650 mg PO Q6H PRN tablet RX: Albuterol 2.5/Ipratropium 0.5 [Duoneb -] 1 amp NEB RQID amp 07/30/18 RX: Ibuprofen [Motrin -] 600 mg PO Q6H PRN tablet 07/30/18 Lansoprazole [Prevacid -] 30 mg PO DAILY 11/29/18 Oxycodone HCl/Acetaminophen [Percocet 5-325 mg Tablet] 1 - 2 tab PO Q6H PRN #10 tab MDD 4 11/29/18 RX: Albuterol Sulfate Inhaler - [Ventolin HFA Inhaler -] 2 puff IH Q4H PRN #1 inhaler 12/25/18 Anemia: Yes Asthma: Yes Cancer: No Cardiac Disorders: No CVA: No (?SMALL STROKE ON CT SCAN SHOWED YEARS AGO) COPD: No CHF: No DVT: No Dementia: No Diabetes: No GI Disorders: Yes (GERD) Disorders: No HTN: Yes Hypercholesterolemia: No Liver Disease: No Seizures: No Thyroid Disease: Yes - Surgical History Abdominal Surgery: No Appendectomy: No Cardiac Surgery: No Cholecystectomy: No Lung Surgery: No Neurologic Surgery: No Orthopedic Surgery: No - Immunization History Immunization Up to Date: Yes - Suicide/Smoking/Psychosocial Hx Smoking Status: No Smoking History: Current every day smoker Have you smoked in the past 12 months: No Number of Cigarettes Smoked Daily: 0 If you are a former smoker, when did you quit?: 4 years Information on smoking cessation initiated: No Hx Alcohol Use: No Drug/Substance Use Hx: No Substance Use Type: None Hx Substance Use Treatment: No *Physical Exam - Vital Signs Last Vital Signs Temp Pulse Resp BP Pulse Ox 98.7 F 73 24 H 127/77 100 12/25/18 11:36 12/25/18 11:36 12/25/18 11:36 12/25/18 11:36 12/25/18 11:36 Moderate Sedation - Procedure Monitoring Vital Signs: Procedure Monitoring Vital Signs Temperature 98.7 F 12/25/18 11:36 Pulse Rate 73 12/25/18 11:36 Respiratory Rate 24 H 12/25/18 11:36 Blood Pressure 127/77 12/25/18 11:36 O2 Sat by Pulse Oximetry (%) 100 12/25/18 11:36 ED Treatment Course - RADIOLOGY Radiology Studies Ordered: Category Date Time Status CHEST PA & LAT [RAD] Stat Radiology 12/25/18 12:33 Ordered *DC/Admit/Observation/Transfer Diagnosis at time of Disposition: Bronchitis - Discharge Dispostion Disposition: HOME Condition at time of disposition: Improved Decision to Admit order: No - Prescriptions Prescriptions: RX: Albuterol Sulfate Inhaler - [Ventolin HFA Inhaler -] 2 puff IH Q4H PRN #1 inhaler PRN Reason: Wheezing - Referrals Referrals: Alfonzo Ornelas [Primary Care Provider] - - Patient Instructions Printed Discharge Instructions: Acute Bronchitis Additional Instructions: your chest xray is negative for pneumonia. your flu test is negative. you have bronchitis. you can use albuterol inhaleed 2 puffs every 4 hours as needed for wheezing. return for any problems or concerns, persistant vomiting, or worsenign shortness of breath. you should follow up with your primary doctor this week call to schedule. - Post Discharge Activity Forms/Work/School Notes: Back to Work
--- NOTE | 2018-12-26 13:34 | EKG ---
Test Reason : Blood Pressure : / mmHG Vent. Rate : 065 BPM Atrial Rate : 065 BPM P-R Int : 146 ms QRS Dur : 076 ms QT Int : 426 ms P-R-T Axes : 073 048 012 degrees QTc Int : 443 ms NORMAL SINUS RHYTHM POSSIBLE LEFT ATRIAL ENLARGEMENT NONSPECIFIC T WAVE ABNORMALITY ABNORMAL ECG WHEN COMPARED WITH ECG OF 29-JUL-2018 09:23, NO SIGNIFICANT CHANGE WAS FOUND Confirmed by SUMAN BUTT, BRIGETTE ([id number]) on 12/26/2018 1:34:14 PM Referred By: Confirmed By:BRIGETTE WILL MD
== END 2018-12-25 15:02 | disposition home or self-care (01) ==
LOC: JER 11:36
PROC: 3E0F7GC Introduction of Other Therapeutic Substance into Respiratory Tract, Via Natural or Artificial Opening (ICD-10-PCS; principal; 2018-12-25)
DX: J40 Bronchitis, not specified as acute or chronic (principal); I10 Essential (primary) hypertension; K21.9 Gastro-esophageal reflux disease without esophagitis; E03.9 Hypothyroidism, unspecified; Z86.73 Personal history of transient ischemic attack (TIA), and cerebral infarction without residual deficits; Z87.09 Personal history of other diseases of the respiratory system
CPT/HCPCS: 71046-TC-FY; 87804; 93005; 93010; 94640; 99282-25; Q0162

== ENCOUNTER 2019-06-29 21:05 | Emergency (ER) | payer OTHER ==
[2019-06-29 21:15] VITALS: BP 135/70; PULSE 91; TEMP 99.5; BMI 25.0
[2019-06-29] MEDS ORDERED: DEXAMETHASONE SOD PHOSPHATE 10 MG/1 ML VIAL ONE (21:50)
[2019-06-29] MEDS ORDERED: DEXAMETHASONE LIQUID 0.5 MG/5 ML PO ONE (21:50)
--- NOTE | 2019-06-29 21:58 | PDOC ---
History of Present Illness - General Chief Complaint: Sore Throat Stated Complaint: SORE THROAT Time Seen by Provider: 06/29/19 21:24 History Source: Patient Exam Limitations: No Limitations - History of Present Illness Initial Comments: 06/29/19 21:50 HISTORY OF PRESENT ILLNESS: This is a 59-year-old female presents emergency department for evaluation of sore throat and a stuck sensation in the posterior oropharynx. Patient denies any difficulty swallowing and has not been drooling. Patient was seen by her primary doctor and was given antibiotics approximately 2 weeks ago. Patient reports her current symptoms started approximately 3 days ago. Patient was seen by her primary doctor 2 days ago and was told it was a viral infection. No recent travel or sick contacts. PAST MEDICAL HISTORY: Denies past medical history SURGICAL HISTORY: Denies ALLERGIES: No known drug allergies REVIEW OF SYSTEMS General/Constitutional: Denies fever or chills. Denies weakness, weight change. HEENT: see HPI Cardiovascular: Denies chest pain or shortness of breath. Respiratory: Denies cough, wheezing, or hemoptysis. Gastrointestinal: Denies nausea, vomiting, diarrhea or constipation. Denies rectal bleeding. Genitourinary: Denies dysuria, frequency, or change in urination. Musculoskeletal: Denies joint or muscle swelling or pain. Denies neck or back pain. Skin and breasts: Denies rash or easy bruising. Neurologic: Denies headache, vertigo, loss of consciousness, or loss of sensation. Psychiatric: Denies depression or anxiety. Endocrine: Denies increased thirst. Denies abnormal weight change. Hematologic/Lymphatic: Denies anemia, easy bleeding, or history of blood clots. Allergic/Immunologic: Denies hives or skin allergy. Denies latex allergy. PHYSICAL EXAM General Appearance: Well-appearing, appropriately dressed. No apparent distress , no intoxication. HEENT: EOMI, PERRLA, normal ENT inspection, normal voice, TMs normal, pharynx normal. No conjunctival pallor. No photophobia, scleral icterus. Multiple small erythematous lesions presents to the soft palate. No vesicles present. Neck: Supple. Trachea midline. No tenderness, rigidity, carotid bruit, stridor , or thyromegaly. Nontender anterior cervical lymphadenopathy present. Respiratory/Chest: Lungs CTAB. No shortness of breath, chest tenderness, respiratory distress, accessory muscle use. No crackles, rales, rhonchi, stridor , wheezing, dullness Cardiovascular: RRR. S1, S2. No JVD, murmur, bradycardia, tachycardia. 06/29/19 21:54 Past History - Past Medical History Allergies/Adverse Reactions: Allergies Allergy/AdvReac Type Severity Reaction Status Date / Time Penicillins Allergy Hives Verified 12/25/18 11:57 Home Medications: Ambulatory Orders Iron,Carb/Vit C/Vit B12/Folic [Iron 100 Plus Tablet] 1 each PO DAILY 01/19/15 Albuterol 0.083% Nebulizer Geovanna [Ventolin 0.083% Nebulizer Soln -] 1 neb NEB Q4H #20 vial 01/12/18 Albuterol Sulfate Inhaler - [Ventolin HFA Inhaler -] 1 - 2 inh PO QID 01/12/18 Cholecalciferol (Vitamin D3) [Vitamin D -] 400 unit PO DAILY 01/12/18 Levothyroxine [Synthroid -] 88 mcg PO DAILY 01/12/18 Montelukast Sodium [Singulair] 10 mg PO DAILY 07/29/18 Nebivolol HCl [Bystolic] 10 mg PO DAILY 07/29/18 Acetaminophen [Tylenol .Regular Strength -] 650 mg PO Q6H PRN tablet 07/30/18 Albuterol 2.5/Ipratropium 0.5 [Duoneb -] 1 amp NEB RQID amp 07/30/18 Ibuprofen [Motrin -] 600 mg PO Q6H PRN tablet 07/30/18 Lansoprazole [Prevacid -] 30 mg PO DAILY 11/29/18 Oxycodone HCl/Acetaminophen [Percocet 5-325 mg Tablet] 1 - 2 tab PO Q6H PRN #10 tab MDD 4 11/29/18 Albuterol Sulfate Inhaler - [Ventolin HFA Inhaler -] 2 puff IH Q4H PRN #1 inhaler 12/25/18 Anemia: Yes Asthma: Yes Cancer: No Cardiac Disorders: No CVA: No (?SMALL STROKE ON CT SCAN SHOWED YEARS AGO) COPD: No CHF: No DVT: No Dementia: No Diabetes: No GI Disorders: Yes (GERD) Disorders: No HTN: Yes Hypercholesterolemia: No Liver Disease: No Seizures: No Thyroid Disease: Yes - Surgical History Abdominal Surgery: No Appendectomy: No Cardiac Surgery: No Cholecystectomy: No Lung Surgery: No Neurologic Surgery: No Orthopedic Surgery: No - Immunization History Immunization Up to Date: Yes - Suicide/Smoking/Psychosocial Hx Smoking Status: No Smoking History: Former smoker Have you smoked in the past 12 months: No Number of Cigarettes Smoked Daily: 0 If you are a former smoker, when did you quit?: 4 years Information on smoking cessation initiated: No Hx Alcohol Use: No Drug/Substance Use Hx: No Substance Use Type: None Hx Substance Use Treatment: No *Physical Exam - Vital Signs Last Vital Signs Temp Pulse Resp BP Pulse Ox 99.5 F 91 H 19 135/70 95 06/29/19 21:11 06/29/19 21:11 06/29/19 21:11 06/29/19 21:11 06/29/19 21:11 Medical Decision Making - Medical Decision Making 06/29/19 21:53 A/P: 59-year-old woman with coxsackie pharyngitis Erythematous lesions present to the soft palate Anterior cervical lymphadenopathy present TMs within normal limits Decadron 10 mg orally now Discharge home with supportive treatment I discussed the physical exam findings, ancillary test results and final diagnoses with the patient. I answered all of the patient's questions. The patient was satisfied with the care received and felt comfortable with the discharge plan and treatment plan. The patient will call their primary care physician within 24 hours to arrange follow-up and will return to the Emergency Department with any new, persistent or worsening symptoms. Portions of this note have been documented using voice recognition software. As a result, errors may occur in the crew mess attendant process. Effort has been made to correct all grammatical and crew mess attendant error, but some may have been missed. *DC/Admit/Observation/Transfer Diagnosis at time of Disposition: Coxsackievirus infection - Discharge Dispostion Disposition: HOME Condition at time of disposition: Stable Decision to Admit order: No - Referrals - Patient Instructions Additional Instructions: Coxsackie virus/hand foot and mouth disease is a viral infection and there are no antibiotic's required . We need to treat the symptoms and fevers. Coarse of illness takes approximately 2-5 days to resolve. Rest, drink lots of fluids: Teas, water, soups, Pedialyte Cold things taste good with a sore throat: Ice pops, ice chips, ice cream which also provide rehydration Humidify room to keep airways moist Avoid contact with others until fevers and cough resolved Lots of handwashing and good hygiene Continue [id number] medications for symptomatic relief Tylenol or Motrin for fever and pain Followup with private physician in one to 2 days as needed Return to emergency department for worsened symptoms, fevers, dehydration - Post Discharge Activity
== END 2019-06-29 21:59 | disposition home or self-care (01) ==
LOC: JERFT 21:05
DX: B08.5 Enteroviral vesicular pharyngitis (principal); B97.11 Coxsackievirus as the cause of diseases classified elsewhere
CPT/HCPCS: 99281-25

== ENCOUNTER 2020-07-24 10:44 | Emergency (ER) | payer BC, OTHER ==
[2020-07-24 10:53] VITALS: BP 155/77; PULSE 78; TEMP 98.1; BMI 22.6
[2020-07-24] MEDS ORDERED: predniSONE 20 MG TABLET (UD) PO ONE (11:10)
[2020-07-24] MEDS ORDERED: ALBUTEROL SO4 2.5/IPRATROPIUM 0.5 INH SOL 3 ML VIAL.NEB. NEB ONE (11:12)
[2020-07-24] MEDS ORDERED: predniSONE 20 MG TABLET (UD) ONE (11:12)
[2020-07-24] MEDS: ALBUTEROL SO4 2.5/IPRATROPIUM 0.5 INH SOL 3 ML VIAL.NEB. NEB SCH ×4 (11:15→12:06)
--- NOTE | 2020-07-24 11:27 | PDOC ---
History of Present Illness - General Chief Complaint: Asthma Stated Complaint: DIARRHEA Time Seen by Provider: 07/24/20 11:03 History Source: Patient Exam Limitations: No Limitations - History of Present Illness Initial Comments: 07/24/20 11:20 Patient is a 60-year-old female with a history of asthma, hypertension and Graves' disease who presents to the ED with complaint that her asthma is bothering her for the last 4 days. She has been using her nebulizer treatments without much relief. She believes it started after the cold air last week. She has been tested twice for COVID since July 15 for both a colonoscopy and endoscopy and she states they were negative tests x2. She denies any fevers or chills. She denies any chest pain. She states this feels like her typical shortness of breath from asthma. She denies any travel within the last 14 days. Past History - Medical History Allergies/Adverse Reactions: Allergies Allergy/AdvReac Type Severity Reaction Status Date / Time Penicillins Allergy Hives Verified 07/24/20 10:48 Home Medications: Ambulatory Orders Iron,Carb/Vit C/Vit B12/Folic [Iron 100 Plus Tablet] 1 each PO DAILY 01/19/15 Albuterol 0.083% Nebulizer Geovanna [Ventolin 0.083% Nebulizer Soln -] 1 neb NEB Q4H #20 vial 01/12/18 Albuterol Sulfate Inhaler - [Ventolin HFA Inhaler -] 1 - 2 inh PO QID 01/12/18 Cholecalciferol (Vitamin D3) [Vitamin D -] 400 unit PO DAILY 01/12/18 Levothyroxine [Synthroid -] 88 mcg PO DAILY 01/12/18 Montelukast Sodium [Singulair] 10 mg PO DAILY 07/29/18 Nebivolol HCl [Bystolic] 10 mg PO DAILY 07/29/18 Acetaminophen [Tylenol .Regular Strength -] 650 mg PO Q6H PRN tablet 07/30/18 Albuterol 2.5/Ipratropium 0.5 [Duoneb -] 1 amp NEB RQID amp 07/30/18 Ibuprofen [Motrin -] 600 mg PO Q6H PRN tablet 07/30/18 Lansoprazole [Prevacid -] 30 mg PO DAILY 11/29/18 Oxycodone HCl/Acetaminophen [Percocet 5-325 mg Tablet] 1 - 2 tab PO Q6H PRN #10 tab MDD 4 11/29/18 Albuterol Sulfate Inhaler - [Ventolin HFA Inhaler -] 2 puff IH Q4H PRN #1 inhaler 12/25/18 predniSONE [Deltasone -] 60 mg PO DAILY #12 tablet 07/24/20 Anemia: Yes Asthma: Yes Cancer: No Cardiac Disorders: No CVA: No (?SMALL STROKE ON CT SCAN SHOWED YEARS AGO) COPD: No CHF: No DVT: No Dementia: No Diabetes: No GI Disorders: Yes (GERD) Disorders: No HTN: Yes Hypercholesterolemia: No Liver Disease: No Seizures: No Thyroid Disease: Yes - Surgical History Abdominal Surgery: No Appendectomy: No Cardiac Surgery: No Cholecystectomy: No Lung Surgery: No Neurologic Surgery: No Orthopedic Surgery: No - Reproductive History Is Patient Now?: No - Immunization History Immunization Up to Date: Yes - Psycho-Social/Smoking History Smoking Status: No Smoking History: Never smoked Have you smoked in the past 12 months: No Number of Cigarettes Smoked Daily: 0 If you are a former smoker, when did you quit?: 4 years Information on smoking cessation initiated: No Review of Systems - Review of Systems Comments:: 07/24/20 11:21 - Review of Systems Able to Perform ROS?: Yes Constitutional: No: Fever, Chills, Loss of Appetite, Night Sweats, Weakness HEENTM: No: Eye Pain, Vision changes, Ear Pain, Throat Pain, Throat Swelling, Mouth Pain, Difficulty Swallowing Respiratory: No: Sputum Production; positive: Cough, Shortness of Breath, Wheezing, Cardiac (ROS): No: Chest Pain, Chest Tightness, Palpitations, Irregular Heart Beat, Edema ABD/GI: No: Nausea, Vomiting, Abdominal Pain, Diarrhea : No Dysuria, No Hematuria, No Frequency, No Urgency Musculoskeletal: No: Muscle Pain, Back Pain, Joint Pain, Muscle Weakness, Neck Pain Integumentary: No: Lesions, Rash Neurological: No: Headache, Numbness, Tingling, Weakness, Speech Difficulties *Physical Exam - Vital Signs Last Vital Signs Temp Pulse Resp BP Pulse Ox 98.1 F 78 22 H 155/77 99 07/24/20 10:49 07/24/20 10:49 07/24/20 10:49 07/24/20 10:49 07/24/20 10:49 - Physical Exam 07/24/20 11:21 - Physical Exam General Appearance: Nourished, Appropriately Dressed, No Distress HEENT: EOMI, Normal Voice, Hearing Grossly Normal Neck: Supple, No Lymphadenopathy (R), No Lymphadenopathy (L), No Rigidity, No Decreased range of motion Respiratory/Chest: Lungs without wheezing appreciated. Good air entry but shallow breaths appreciated. Speaking in 3-4 word sentences. Dry cough appreciated. No retractions appreciated. No rales or rhonchi appreciated. Cardiovascular: Regular Rhythm, Regular Rate, S1, S2 Gastrointestinal/Abdominal: Normal Bowel Sounds, Soft. Non-tender, No Guarding, No Rebound, No Rigidity Musculoskeletal: Normal Inspection. No Decreased Range of Motion Extremity: Normal Capillary Refill, Normal Inspection Integumentary: Normal Color, Dry. No Rash Neurologic: web application developer II-XII NML intact, Fully Oriented, Alert, Normal Mood/Affect, Normal Response ED Treatment Course - RADIOLOGY Radiology Studies Ordered: Category Date Time Status CHEST PA & LAT [RAD] Stat Radiology 07/24/20 11:10 Ordered - Medications Given in the ED: ED Medications Discontinued Medications Generic Name Dose Route Start Last Admin Trade Name Freq PRN Reason Stop Dose Admin Prednisone 60 mg 07/24/20 11:10 07/24/20 11:15 Deltasone - PO 07/24/20 11:11 60 mg ONCE ONE Administration Medical Decision Making - Medical Decision Making 07/24/20 11:22 Assessment: Patient is a 60-year-old female with a cough and shortness of breath for the last 4 days which she states is consistent with her asthma exacerbations. Plan: -Tommy's x4 -Prednisone p.o. ordered -Chest x-ray ordered -Will reassess 07/24/20 12:06 Patient feeling much better after her treatments. She is now speaking in full and complete sentences. Her cough has resolved. We will discharge the patient with a prescription for prednisone and have her follow-up with her primary doctor. Her chest x-ray is read as negative by radiology. She has albuterol for her nebulizer machine at home and does not need another prescription. She understands and agrees with this treatment plan and she is stable for discharge. Discharge - Discharge Information Problems reviewed: Yes Clinical Impression/Diagnosis: Asthma exacerbation Qualifiers: Asthma severity: unspecified severity Asthma persistence: unspecified Qualified Code(s): J45.901 - Unspecified asthma with (acute) exacerbation Condition: Stable Disposition: HOME - Additional Discharge Information Prescriptions: predniSONE [Deltasone -] 60 mg PO DAILY #12 tablet - Follow up/Referral - Patient Discharge Instructions Patient Printed Discharge Instructions: Asthma -- Adult Additional Instructions: Take the prednisone as prescribed and complete the entire course. Start the prednisone tomorrow your first dose was given in the ED today. Use your albuterol nebulizer as needed. Be sure to follow-up with your primary doctor within 1 to 2 days for repeat evaluation - Post Discharge Activity Work/Back to School Note: Back to Work
== END 2020-07-24 12:22 | disposition home or self-care (01) ==
LOC: JER 10:44
PROC: 3E0F7GC Introduction of Other Therapeutic Substance into Respiratory Tract, Via Natural or Artificial Opening (ICD-10-PCS; principal; 2020-07-24)
DX: J45.901 Unspecified asthma with (acute) exacerbation (principal)
CPT/HCPCS: 71046-TC-FY; 99284-25

== ENCOUNTER 2022-02-28 06:51 | Emergency (ER) | payer OTHER ==
[2022-02-28 07:02] VITALS: TEMP 98; BMI 29.0
[2022-02-28] MEDS ORDERED: ALBUTEROL SO4 2.5/IPRATROPIUM 0.5 INH SOL 3 ML VIAL.NEB. NEB ONE ×2 (07:03→07:36)
[2022-02-28] MEDS ORDERED: methylPREDNISolone NA SUCC 125 MG/2 ML VIAL IVPB ONE (07:17)
[2022-02-28] MEDS ORDERED: methylPREDNISolone NA SUCC 125 MG/2 ML VIAL ONE (07:24)
[2022-02-28 07:57] LABS: BASO % 0.4 % (0-2.0); EOS % 1.4 % (0-4.5); HEMOGLOBIN 13.7 GM/dL (10.7-15.3); LYMPH % 42.7 % (8-40); MCHC 33.4 g/dl (32.0-36.0); MONO % 8.4 % (3.8-10.2); NEUT % 47.1 % (42.8-82.8); PLATELET COUNT 214 10^3/uL (134-434); RBC 4.56 M/mm3 (3.60-5.2); RDW 14.4 % (11.6-15.6); WHITE BLOOD COUNT 7.5 K/mm3 (4.0-10.0)
[2022-02-28 08:07] LABS: ALBUMIN 3.7 g/dl (3.4-5.0); MAGNESIUM 1.9 mg/dL (1.8-2.4)
[2022-02-28 08:10] LABS: CREATININE 0.7 mg/dL (0.55-1.3)
[2022-02-28 08:11] LABS: BILIRUBIN,TOTAL 0.8 mg/dL (0.2-1); TOT PROT 7.9 g/dl (6.4-8.2)
[2022-02-28] MEDS ORDERED: ALBUTEROL SO4 0.083% IH SOL 2.5 MG/3 ML VIAL.NEB. NEB ONE (08:25)
[2022-02-28 09:05] VITALS: BP 152/98; PULSE 101
== END 2022-02-28 09:40 | disposition home or self-care (01) ==
LOC: JER 06:51
PROC: 3E0F7GC Introduction of Other Therapeutic Substance into Respiratory Tract, Via Natural or Artificial Opening (ICD-10-PCS; principal; 2022-02-28)
PROC: 3E033GC Introduction of Other Therapeutic Substance into Peripheral Vein, Percutaneous Approach (ICD-10-PCS; 2022-02-28)
DX: J45.901 Unspecified asthma with (acute) exacerbation (principal)
CPT/HCPCS: 36415; 71045-TC-FY; 80053; 83735; 85025; 87804; 99284-25; C9803-CS; U0003; U0005

== ENCOUNTER 2024-06-09 19:15 | Observation (INO) | payer OTHER ==
[2024-06-09 19:40] VITALS: BMI 27.4
[2024-06-09 20:48] LABS: BASO % 0.3 % (0-2.0); EOS % 1.9 % (0-4.5); HEMATOCRIT 25.2 % (32.4-45.2); HEMOGLOBIN 8.4 GM/dL (10.7-15.3); LYMPH % 27.5 % (8-40); MCH 29.8 pg (25.7-33.7); MCHC 33.4 g/dl (32.0-36.0); MEAN CELL VOLUME 89.3 fl (80-96); MEAN PLT VOLUME 9.3 fl (7.5-11.1); MONO % 10.9 % (3.8-10.2); NEUT % 59.4 % (42.8-82.8); PLATELET COUNT 245 10^3/uL (134-434); RBC 2.82 M/mm3 (3.60-5.2); RDW 15.3 % (11.6-15.6); WHITE BLOOD COUNT 7.9 K/mm3 (4.0-10.0)
[2024-06-09 21:05] LABS: INR 1.13 (0.83-1.09)
[2024-06-09 21:06] LABS: POTASSIUM 5.4 mmol/L (3.5-5.1)
[2024-06-09 21:08] LABS: ACTIVATED PTT 25.3 SECONDS (25.2-36.5); ALBUMIN 2.8 g/dl (3.4-5.0); CALCIUM 7.9 mg/dL (8.5-10.1)
[2024-06-09 21:09] LABS: BLOOD UREA NITROGEN 38.7 mg/dL (7-18); MAGNESIUM 1.6 mg/dL (1.8-2.4)
[2024-06-09 21:13] LABS: BILIRUBIN,TOTAL 0.5 mg/dL (0.2-1); TOT PROT 6.9 g/dl (6.4-8.2)
[2024-06-09] MEDS: SODIUM CHLORIDE 1,000 ML IV STA (22:38)
[2024-06-09 23:54] LABS: PH,URINE 5.5 (5.0-8.0); URINE APPEARANCE CLEAR; URINE BILIRUBIN NEGATIVE (NEGATIVE); URINE COLOR YELLOW; URINE GLUCOSE (UA) 2+ (NEGATIVE); URINE KETONE NEGATIVE (NEGATIVE); URINE LEUK ESTERASE NEGATIVE (NEGATIVE); URINE NITRITE NEGATIVE (NEGATIVE); URINE PROTEIN NEGATIVE (NEGATIVE); URINE UROBILINOGEN 0.2 mg/dL (0.2-1.0)
[2024-06-10] MEDS ORDERED: MAGNESIUM SULFATE IN WATER 2 GM/50 ML IVPB IVPB ONE (01:04)
[2024-06-10 01:28] LABS: RETICULOCYTES 1.77 % (0.5-1.5)
[2024-06-10] MEDS: MAGNESIUM SULF 50% (8.12 MEQ/2 ML-1 GM VIAL) IVPB ONE (01:34)
[2024-06-10 01:37] LABS: POTASSIUM 4.1 mmol/L (3.5-5.1)
[2024-06-10 01:39] LABS: BLOOD UREA NITROGEN 36.4 mg/dL (7-18)
[2024-06-10 01:42] LABS: CREATININE 1.7 mg/dL (0.55-1.3)
[2024-06-10] MEDS: SODIUM CHLORIDE 1,000 ML IV SCH (03:41)
[2024-06-10] MEDS ORDERED: ALBUTEROL SO4 HFA INHALER IH PRN (03:44)
[2024-06-10] MEDS: GABAPENTIN 300 MG CAPSULE PO SCH (05:40)
[2024-06-10] MEDS: HEPARIN NA (PORCINE) 5,000 UNITS/ML 1ML VIAL SQ SCH (05:41)
[2024-06-10] MEDS: metoPROLOL SUCCINATE 25 MG TAB.SR.24H (FP) PO SCH (10:58)
[2024-06-10] MEDS: amLODIPine BESYLATE 2.5 MG TABLET (FP) PO SCH (10:58)
[2024-06-10] MEDS: POLYETHYLENE GLYCOL (HEALTHYLAX) 3350 17 GM PACKET PO SCH (10:58)
[2024-06-10] MEDS: PANTOPRAZOLE 40 MG TABLET PO SCH (10:58)
[2024-06-10] MEDS: FLUTICASONE/UMECLIDIN/VILANTER(100-62.5-25 TRELEGY ELLIPTA) INAHLER IH SCH (11:57)
[2024-06-10] MEDS: PANTOPRAZOLE SODIUM 40 MG VIAL IVPUSH SCH (11:57)
[2024-06-10] MEDS: SODIUM CHLORIDE 0.45% 1,000 ML IV SCH (17:00)
[2024-06-10] MEDS: IRON SUCROSE INJECTION 200 MG in SODIUM CHLORIDE 100 ML IVPB ONE (17:22)
[2024-06-10] MEDS: ATORVASTATIN CA 40 MG TABLET (FP) PO SCH (22:01)
[2024-06-11 08:08] LABS: BASO % 0.4 % (0-2.0); EOS % 1.1 % (0-4.5); HEMOGLOBIN 8.1 GM/dL (10.7-15.3); MCH 29.3 pg (25.7-33.7); MCHC 32.4 g/dl (32.0-36.0); MEAN CELL VOLUME 90.3 fl (80-96); MEAN PLT VOLUME 9.3 fl (7.5-11.1); MONO % 9.7 % (3.8-10.2); NEUT % 57.8 % (42.8-82.8); PLATELET COUNT 254 10^3/uL (134-434); RBC 2.77 M/mm3 (3.60-5.2); RDW 14.7 % (11.6-15.6); WHITE BLOOD COUNT 6.8 K/mm3 (4.0-10.0)
[2024-06-11 08:24] LABS: POTASSIUM 4.2 mmol/L (3.5-5.1)
[2024-06-11 08:27] LABS: ALBUMIN 3.1 g/dl (3.4-5.0)
[2024-06-11 08:28] LABS: BLOOD UREA NITROGEN 20.7 mg/dL (7-18); MAGNESIUM 1.7 mg/dL (1.8-2.4)
[2024-06-11 08:30] LABS: CALCIUM 8.8 mg/dL (8.5-10.1)
[2024-06-11 08:31] LABS: CREATININE 1.3 mg/dL (0.55-1.3); PHOSPHOROUS 2.7 mg/dL (2.5-4.9)
[2024-06-11 08:32] LABS: BILIRUBIN,TOTAL 0.3 mg/dL (0.2-1); TOT PROT 6.9 g/dl (6.4-8.2)
[2024-06-11] MEDS: BISACODYL 5 MG TABLET.DR (FP) PO ONE (15:05)
[2024-06-11] MEDS: PEG 3350/NA SULF BICARB CL/KCL 4000 ML SOLN.RECON PO ONE (17:13)
[2024-06-12 08:33] LABS: BASO % 0.5 % (0-2.0); EOS % 1.4 % (0-4.5); HEMATOCRIT 23.6 % (32.4-45.2); HEMOGLOBIN 7.8 GM/dL (10.7-15.3); LYMPH % 27.6 % (8-40); MCHC 33.1 g/dl (32.0-36.0); MEAN CELL VOLUME 90.5 fl (80-96); MEAN PLT VOLUME 9.1 fl (7.5-11.1); MONO % 8.5 % (3.8-10.2); PLATELET COUNT 255 10^3/uL (134-434); RDW 14.8 % (11.6-15.6); WHITE BLOOD COUNT 6.8 K/mm3 (4.0-10.0)
[2024-06-12 08:50] LABS: POTASSIUM 4.5 mmol/L (3.5-5.1)
[2024-06-12 08:51] LABS: CALCIUM 8.8 mg/dL (8.5-10.1)
[2024-06-12 08:52] LABS: BLOOD UREA NITROGEN 12.2 mg/dL (7-18); MAGNESIUM 1.6 mg/dL (1.8-2.4)
[2024-06-12 08:56] LABS: BILIRUBIN,TOTAL 0.3 mg/dL (0.2-1)
[2024-06-12 08:57] LABS: TOT PROT 6.5 g/dl (6.4-8.2)
[2024-06-12 10:03] VITALS: RESP 18
[2024-06-12] MEDS: TICAGRELOR 90 MG TABLET PO SCH (11:46)
[2024-06-12] MEDS: MAGNESIUM OXIDE 400 MG TABLET (FP) PO ONE (15:06)
[2024-06-12 15:14] VITALS: BP 113/51; PULSE 87; TEMP 98.8
[2024-06-12] MEDS: MAGNESIUM 1GM/D5W - 1 GM/100 ML IVPB IVPB ONE (17:22)
[2024-06-12 19:08] LABS: FREE KAPPA,SERUM 38.3 mg/L (3.3-19.4)
[2024-06-12] MEDS ORDERED: PANTOPRAZOLE 40 MG TABLET PO SCH (22:00)
== END 2024-06-12 05:00 | disposition left against medical advice (07) ==
LOC: JER 19:15 → JERBED 23:23 → J7W 06-10 02:57
PROVIDERS: ADMIT Internal Medicine; ATTEND Internal Medicine
PROC: 0DB68ZX Excision of Stomach, Via Natural or Artificial Opening Endoscopic, Diagnostic (ICD-10-PCS; principal; 2024-06-09)
PROC: 0DB98ZX Excision of Duodenum, Via Natural or Artificial Opening Endoscopic, Diagnostic (ICD-10-PCS; 2024-06-09)
PROC: 3E0337Z Introduction of Electrolytic and Water Balance Substance into Peripheral Vein, Percutaneous Approach (ICD-10-PCS; 2024-06-12)
DX: I25.10 Atherosclerotic heart disease of native coronary artery without angina pectoris (principal); I11.9 Hypertensive heart disease without heart failure; J45.909 Unspecified asthma, uncomplicated; K21.9 Gastro-esophageal reflux disease without esophagitis; D64.9 Anemia, unspecified; N17.9 Acute kidney failure, unspecified; R79.9 Abnormal finding of blood chemistry, unspecified; Z95.5 Presence of coronary angioplasty implant and graft; K44.9 Diaphragmatic hernia without obstruction or gangrene; K31.5 Obstruction of duodenum; D50.9 Iron deficiency anemia, unspecified; E03.9 Hypothyroidism, unspecified; F10.21 Alcohol dependence, in remission; Z88.0 Allergy status to penicillin; Z87.891 Personal history of nicotine dependence
CPT/HCPCS: 36415; 70450-TC; 70496-TC; 70498-TC; 71046-TC-FY; 76775-TC; 80048; 80053; 80061; 81003; 82272; 82550; 82607; 82728; 82746; 82962; 83036; 83540; 83550; 83735; 83883; 83970; 84100; 84155; 84165; 84439; 84443; 84466; 84484; 85025; 85045; 85610; 85730; 86850; 86900; 86901; 88305-TC; 88342-TC; 93005; 93010; 93306-TC; 97116-GP; 97161-GP; 99291; G0378; J1644; J1756

== ENCOUNTER 2024-08-02 11:21 | Inpatient (IN) | payer OTHER ==
[2024-08-02] MEDS ORDERED: ALBUTEROL SO4 2.5/IPRATROPIUM 0.5 INH SOL 3 ML VIAL.NEB. NEB ONE (12:04)
[2024-08-02 12:23] LABS: BASO % 0.4 % (0-2.0); EOS % 1.1 % (0-4.5); HEMATOCRIT 20.7 % (32.4-45.2); LYMPH % 17.6 % (8-40); MCH 26.1 pg (25.7-33.7); MCHC 30.4 g/dl (32.0-36.0); MEAN PLT VOLUME 8.8 fl (7.5-11.1); MONO % 9.7 % (3.8-10.2); NEUT % 71.2 % (42.8-82.8); PLATELET COUNT 369 10^3/uL (134-434); RDW 18.4 % (11.6-15.6); WHITE BLOOD COUNT 5.9 K/mm3 (4.0-10.0)
[2024-08-02] MEDS: ALBUTEROL SO4 2.5/IPRATROPIUM 0.5 INH SOL 3 ML VIAL.NEB. NEB SCH (12:30)
[2024-08-02 12:34] LABS: VENOUS BASE EXCESS -7.6 mmol/L (-2-2); VENOUS O2 SATURATION 77.5 % (70-80); VENOUS PCO2 33.2 mmHg (38-52); VENOUS PH 7.339 (7.310-7.410)
[2024-08-02 12:34] LABS: ACTIVATED PTT 31.8 SECONDS (25.2-36.5); INR 1.14 (0.83-1.09); PROTHROMBIN TIME (PATIENT) 13.1 SEC (9.7-13.0)
[2024-08-02 12:51] LABS: POTASSIUM 4.5 mmol/L (3.5-5.1)
[2024-08-02 12:53] LABS: ALBUMIN 2.9 g/dl (3.4-5.0); BLOOD UREA NITROGEN 56.5 mg/dL (7-18); MAGNESIUM 2.3 mg/dL (1.8-2.4)
[2024-08-02 12:57] LABS: CREATININE 2.7 mg/dL (0.55-1.3)
[2024-08-02 12:58] LABS: TOT PROT 6.7 g/dl (6.4-8.2)
[2024-08-02] MEDS: LACTATED RINGERS SOLUTION 1,000 ML/1,000 ML INFUS.BAG IV SCH (13:27)
[2024-08-02] MEDS ORDERED: ALBUTEROL SO4 2.5/IPRATROPIUM 0.5 INH SOL 3 ML VIAL.NEB. NEB PRN (13:30)
[2024-08-02] MEDS ORDERED: DEXTROSE 5%-0.45% SALINE 1,000 ML IV SCH (13:45)
[2024-08-02] MEDS ORDERED: GABAPENTIN 300 MG CAPSULE ONE (13:57)
[2024-08-02] MEDS ORDERED: PANTOPRAZOLE 40 MG TABLET PO ONE (13:57)
[2024-08-02] MEDS: DEXTROSE 5%-0.45% SALINE 1,000 ML IV SCH ×4 (14:11→17:18)
[2024-08-02] MEDS: PANTOPRAZOLE 40 MG TABLET PO SCH (14:11)
[2024-08-02] MEDS: GABAPENTIN 300 MG CAPSULE PO SCH (14:11)
[2024-08-02] MEDS: PANTOPRAZOLE SODIUM 40 MG VIAL IVPUSH SCH ×2 (14:13→21:25)
[2024-08-02] MEDS ORDERED: ACETAMINOPHEN 1000 MG/100 ML BAG IVPB PRN (14:57)
[2024-08-02 15:22] LABS: BILIRUBIN,TOTAL 0.3 mg/dL (0.2-1)
[2024-08-02 15:43] VITALS: BMI 25.6
[2024-08-02 15:49] LABS: HEMOGLOBIN 6.3 GM/dL (10.7-15.3)
[2024-08-02] MEDS ORDERED: ATORVASTATIN CA 40 MG TABLET (FP) PO SCH (22:00)
[2024-08-03 09:21] LABS: BASO % 0.3 % (0-2.0); HEMATOCRIT 21.3 % (32.4-45.2); LYMPH % 25.9 % (8-40); MCH 27.1 pg (25.7-33.7); MCHC 31.9 g/dl (32.0-36.0); MONO % 6.6 % (3.8-10.2); NEUT % 66.2 % (42.8-82.8); PLATELET COUNT 324 10^3/uL (134-434); RBC 2.51 M/mm3 (3.60-5.2); RDW 17.4 % (11.6-15.6); WHITE BLOOD COUNT 5.6 K/mm3 (4.0-10.0)
[2024-08-03 09:33] LABS: HEMOGLOBIN 6.8 GM/dL (10.7-15.3)
[2024-08-03 11:57] LABS: POTASSIUM 4.4 mmol/L (3.5-5.1)
[2024-08-03 12:00] LABS: BLOOD UREA NITROGEN 41.2 mg/dL (7-18); CALCIUM 8.6 mg/dL (8.5-10.1)
[2024-08-03 12:04] LABS: CREATININE 2.1 mg/dL (0.55-1.3)
[2024-08-04 09:01] LABS: HEMATOCRIT 27.8 % (32.4-45.2); HEMOGLOBIN 9.3 GM/dL (10.7-15.3); MCH 27.5 pg (25.7-33.7); MCHC 33.5 g/dl (32.0-36.0); MEAN CELL VOLUME 82.1 fl (80-96); MEAN PLT VOLUME 8.9 fl (7.5-11.1); PLATELET COUNT 377 10^3/uL (134-434); RBC 3.38 M/mm3 (3.60-5.2); RDW 19.1 % (11.6-15.6); WHITE BLOOD COUNT 7.4 K/mm3 (4.0-10.0)
[2024-08-04 09:45] LABS: ANISOCYTOSIS 2+; MACROCYTOSIS 0
[2024-08-04 09:46] LABS: POTASSIUM 4.6 mmol/L (3.5-5.1)
[2024-08-04 09:51] LABS: BLOOD UREA NITROGEN 31.7 mg/dL (7-18)
[2024-08-04 09:52] LABS: CREATININE 1.8 mg/dL (0.55-1.3)
[2024-08-04 09:55] LABS: CALCIUM 9.6 mg/dL (8.5-10.1)
[2024-08-04] MEDS: DEXTROSE 5%-0.45% SALINE 1,000 ML IV SCH (10:25)
[2024-08-04] MEDS: POLYETHYLENE GLYCOL (HEALTHYLAX) 3350 17 GM PACKET PO SCH (17:17)
[2024-08-05 09:56] LABS: BASO % 0.5 % (0-2.0); EOS % 0.7 % (0-4.5); HEMATOCRIT 28.1 % (32.4-45.2); HEMOGLOBIN 8.9 GM/dL (10.7-15.3); LYMPH % 21.3 % (8-40); MCH 26.6 pg (25.7-33.7); MCHC 31.7 g/dl (32.0-36.0); MEAN CELL VOLUME 83.9 fl (80-96); MEAN PLT VOLUME 8.9 fl (7.5-11.1); MONO % 9.6 % (3.8-10.2); NEUT % 67.9 % (42.8-82.8); PLATELET COUNT 367 10^3/uL (134-434); RBC 3.35 M/mm3 (3.60-5.2); WHITE BLOOD COUNT 6.4 K/mm3 (4.0-10.0)
[2024-08-05 10:22] LABS: POTASSIUM 4.1 mmol/L (3.5-5.1)
[2024-08-05 10:30] LABS: CALCIUM 9.1 mg/dL (8.5-10.1)
[2024-08-05 10:31] LABS: BLOOD UREA NITROGEN 20.8 mg/dL (7-18)
[2024-08-05 10:34] LABS: CREATININE 1.5 mg/dL (0.55-1.3)
[2024-08-05 12:28] VITALS: RESP 18
[2024-08-05] MEDS: TICAGRELOR 90 MG TABLET PO SCH (14:19)
[2024-08-05] MEDS: IRON SUCROSE INJECTION 300 MG in SODIUM CHLORIDE 235 ML IVPB ONE (14:29)
[2024-08-05] MEDS: morphine SULFATE 4 MG/ML VIAL IVPUSH ONE (21:46)
[2024-08-06 09:14] LABS: BASO % 0.4 % (0-2.0); EOS % 0.6 % (0-4.5); HEMATOCRIT 27.9 % (32.4-45.2); HEMOGLOBIN 8.8 GM/dL (10.7-15.3); LYMPH % 21.5 % (8-40); MCH 26.5 pg (25.7-33.7); MCHC 31.6 g/dl (32.0-36.0); MEAN CELL VOLUME 83.9 fl (80-96); MEAN PLT VOLUME 8.6 fl (7.5-11.1); MONO % 9.2 % (3.8-10.2); NEUT % 68.3 % (42.8-82.8); PLATELET COUNT 354 10^3/uL (134-434); RBC 3.33 M/mm3 (3.60-5.2); RDW 19.1 % (11.6-15.6); WHITE BLOOD COUNT 6.1 K/mm3 (4.0-10.0)
[2024-08-06] MEDS: PANTOPRAZOLE 40 MG TABLET PO SCH ×3 (09:23→21:22)
[2024-08-06] MEDS: ASPIRIN COATED 81 MG TABLET.EC PO SCH (09:23)
[2024-08-06 09:32] LABS: POTASSIUM 3.9 mmol/L (3.5-5.1)
[2024-08-06 09:35] LABS: BLOOD UREA NITROGEN 15.5 mg/dL (7-18); CALCIUM 8.7 mg/dL (8.5-10.1)
[2024-08-06 09:38] LABS: CREATININE 1.4 mg/dL (0.55-1.3)
[2024-08-06] MEDS ORDERED: morphine SULFATE 4 MG/ML VIAL IVPUSH PRN ×2 (10:00→15:14)
[2024-08-06] MEDS ORDERED: ACETAMINOPHEN 1000 MG/100 ML BAG IVPB PRN (10:06)
[2024-08-06] MEDS: MAG HYDROX/AL HYDROX/SIMETH 30 ML UNIT-DOSE CUP PO SCH (10:45)
[2024-08-07 06:11] VITALS: BP 119/67; PULSE 75; TEMP 98.4
[2024-08-07] MEDS: ASPIRIN COATED 81 MG TABLET.EC PO SCH (09:51)
[2024-08-07 11:05] LABS: BASO % 0.5 % (0-2.0); EOS % 0.6 % (0-4.5); HEMATOCRIT 28.9 % (32.4-45.2); HEMOGLOBIN 9.3 GM/dL (10.7-15.3); LYMPH % 24.4 % (8-40); MCH 26.9 pg (25.7-33.7); MCHC 32.2 g/dl (32.0-36.0); MEAN CELL VOLUME 83.6 fl (80-96); MEAN PLT VOLUME 8.9 fl (7.5-11.1); MONO % 7.3 % (3.8-10.2); NEUT % 67.2 % (42.8-82.8); PLATELET COUNT 362 10^3/uL (134-434); RBC 3.46 M/mm3 (3.60-5.2); RDW 18.9 % (11.6-15.6); WHITE BLOOD COUNT 6.4 K/mm3 (4.0-10.0)
[2024-08-07 11:34] LABS: POTASSIUM 3.9 mmol/L (3.5-5.1)
[2024-08-07 11:38] LABS: CALCIUM 9.2 mg/dL (8.5-10.1)
[2024-08-07 11:39] LABS: CREATININE 1.4 mg/dL (0.55-1.3)
== END 2024-08-07 10:47 | disposition home or self-care (01) | DRG 378 ==
LOC: JER 11:21 → JERBED 13:21 → OBSVTOIN 13:41 → J8W 14:43
PROVIDERS: ADMIT Internal Medicine; ATTEND Internal Medicine
PROC: 30233N1 Transfusion of Nonautologous Red Blood Cells into Peripheral Vein, Percutaneous Approach (ICD-10-PCS; 2024-08-02)
PROC: 0DJ08ZZ Inspection of Upper Intestinal Tract, Via Natural or Artificial Opening Endoscopic (ICD-10-PCS; principal; 2024-08-05 13:30)
DX: K31.811 Angiodysplasia of stomach and duodenum with bleeding (principal); N17.9 Acute kidney failure, unspecified; I25.10 Atherosclerotic heart disease of native coronary artery without angina pectoris; J44.9 Chronic obstructive pulmonary disease, unspecified; R10.13 Epigastric pain; I10 Essential (primary) hypertension; E78.5 Hyperlipidemia, unspecified; E03.9 Hypothyroidism, unspecified; K21.9 Gastro-esophageal reflux disease without esophagitis; K29.70 Gastritis, unspecified, without bleeding; K44.9 Diaphragmatic hernia without obstruction or gangrene; E86.0 Dehydration; D50.9 Iron deficiency anemia, unspecified; G56.00 Carpal tunnel syndrome, unspecified upper limb; M54.12 Radiculopathy, cervical region; Z95.1 Presence of aortocoronary bypass graft
CPT/HCPCS: 0241U-QW; 36415; 36430; 71045-TC-FY; 71250-TC; 74176-TC; 80048; 80053; 82272; 82728; 82803; 83540; 83550; 83735; 83880; 84484; 85025; 85610; 85730; 86850; 86900; 86901; 86922; 93005; 93010; 97116-GP; 97162-GP; 99285-25; G0378; J1756; P9058